=== PATIENT | male | born 1950 | race Caucasian/White ===

== ENCOUNTER → 2024-07-19 12:17 | Outpatient (REF) | payer MEDICARE, OTHER, SELFPAY ==
[2024-07-19 17:05] LABS: PSA, Total - Diagnostic 5.08 ng/ml (0.0-4.0)
== END ==
LOC: HWLAB 12:17
PROVIDERS: ATTENDING PHYSICIAN Urology; FAMILY PHYSICIAN Family Medicine
DX: R97.20 Elevated prostate specific antigen [PSA] (principal)
CPT/HCPCS: 84153

== ENCOUNTER → 2024-08-10 07:27 | Outpatient (REF) | payer MEDICARE, OTHER, SELFPAY ==
[2024-08-10 09:33] LABS: Blood Urea Nitrogen 27 mg/dl (9-20); Calcium 9.3 mg/dl (8.4-10.2); Carbon Dioxide 24 mmol/L (22-30); Chloride 104 mmol/L (98-107); Glucose 94 mg/dl (70-99); Potassium 4.7 mmol/L (3.5-5.1); Sodium 141 mmol/L (135-145); eGFR > 60.00
== END ==
LOC: HWLAB 07:27
PROVIDERS: ATTENDING PHYSICIAN Urology; FAMILY PHYSICIAN Family Medicine
DX: N40.1 Benign prostatic hyperplasia with lower urinary tract symptoms (principal); R33.9 Retention of urine, unspecified
CPT/HCPCS: 36415; 80048

== ENCOUNTER → 2024-08-12 09:40 | Outpatient (REF) | payer MEDICARE, OTHER, SELFPAY | LOC: HWRAD 09:40 | PROVIDERS: ATTENDING PHYSICIAN Urology; FAMILY PHYSICIAN Family Medicine | DX: N40.1 Benign prostatic hyperplasia with lower urinary tract symptoms (principal); R33.9 Retention of urine, unspecified | CPT/HCPCS: 76770 ==

== ENCOUNTER → 2025-02-18 10:24 | Outpatient (REF) | payer MEDICARE, OTHER, SELFPAY ==
[2025-02-18 14:00] LABS: PSA, Total - Diagnostic 5.32 ng/ml (0.0-4.0)
== END ==
LOC: HWLAB 10:24
PROVIDERS: ATTENDING PHYSICIAN Urology; FAMILY PHYSICIAN Family Medicine
DX: R97.20 Elevated prostate specific antigen [PSA] (principal)
CPT/HCPCS: 84153

== ENCOUNTER 2025-09-18 23:03 | Inpatient (IN) | payer MEDICARE, OTHER, SELFPAY ==
[2025-09-18 19:41] VITALS: BP 106/58
--- NOTE | 2025-09-18 20:07 | ED.GENMED ---
History of Present Illness
<Cortney Van PA-C - Last Filed: 09/18/25 23:11>
General
Chief Complaint: Fever
Source: patient
Exam Limitations: none
Time Seen by Provider: 09/18/25 19:53
History of Present Illness
History of Present Illness:
75yoM with a history of BPH, prior renal cell carcinoma s/p nephrectomy, and hypothyroidism presenting with his for evaluation of a fever. Patient started to experience hematuria about a week and a half ago. He was seen by his PCP and started
on Macrobid for a UTI. Symptoms were persistent and urine culture ultimately grew out greater than 100,000 colonies of Morganella that was resistant to Macrobid. He was switched to Bactrim 5 days ago. He started to notice chills yesterday and
checked his temperature this evening and he was febrile. He also reports a cough that is intermittently productive. No testicular pain, scrotal swelling, abdominal pain, flank pain, shortness of breath, vomiting, rash.
Phy Exam
<Cortney Van PA-C - Last Filed: 09/18/25 23:11>
General Physical Exam
General Presentation: well appearing and mild distress
General Skin: warm and dry
General Habitus: normal
General Mental: alert
ENT Exam
ENT Exam: normocephalic
Cardiovascular Exam
Cardiovascular Exam: tachycardia
Pulmonary Exam
Pulmonary Exam: lungs clear, no respiratory distress, no rales, no crackles and no rhonchi
Gastrointestinal Exam
Gastrointestinal Exam: non tender, soft, non distended and no cva tenderness
Neurological Exam
Neurological Exam: alert
[place] Coma Scale
Eye Opening: Spontaneous
Verbal Response: Oriented
Motor Response: Obeys Commands
GCS Total Score: 15
Skin Exam
Skin Exam: normal color and warm/dry
Psychiatric Exam
Psychiatric Exam: normal mood/affect
Sepsis
<Cortney Van PA-C - Last Filed: 09/18/25 23:11>
Sepsis Screening
Sepsis Assessment: Sepsis
Sepsis Screen
Sepsis Screen: Sepsis
Date: 09/18/25
Time: 23:11
Course
<Cortney Van PA-C - Last Filed: 09/18/25 23:11>
Orders/Labs/Results
Orders:
Orders
09/18/25 20:05
0.9% Sodium Chloride 1000 ml [Nss] 1,000 ml IV BOLUS
Acetaminophen [Tylenol] 1,000 mg PO NOW STA
09/18/25 20:06
CT Abd/pel Without Iv Or Oral Urgent
Comment:
Reason For Exam: fever, recent UTI
CR Chest - 2 Views Urgent
Comment:
Reason For Exam: fever, cough
09/18/25 20:16
COVID-19 Antigen Urgent
Source: Nasal Swab
Complete Blood Count/With Diff Urgent
Comprehensive Metabolic Panel Urgent
Lactate Level [Lactic Acid] Urgent
Influenza A+B Rapid Molecular Urgent
ANGELA Source: Nasal Swab
Specimen Description:
09/18/25 20:17
Urinalysis Reflex To Culture Urgent
Date Specimen was Collected: 09/18/25
Time Specimen was Collected: 20:17
Urine Microscopic Reflex Cult Urgent
Urine Culture Urgent
ANGELA Source: U
Specimen Description:
Date Specimen was Collected: 09/18/25
Time Specimen was Collected: 20:17
09/18/25 21:22
Bladder Scan- Treatment ONCE
Cefepime HCl [Maxipime] 2,000 mg IV NOW STA
09/18/25 21:51
Phillips Placement- Treatment ONCE
Reason for insertion: Acute Retention
0.9% Sodium Chloride 1000 ml [Nss] 1,000 ml IV BOLUS
09/18/25 22:39
0.9% Sodium Chloride 500 ml [Nss] 500 ml IV BOLUS
09/18/25 22:42
Admit/Transfer Patient As Directed
Co-Sign Provider:
Level of Care: Inpatient admission
Assign to:: Medical/Surgical
Physician / Group: Gianfranco Moss
Diagnosis: sepsis, UTI, EBENEZER, acute urinary retention
Reason for Hospitalization: sepsis, UTI, EBENEZER, acute urinary retention
Expected length of stay greater than two midnights?: Yes
ELOS- Estimated Length of Stay in days: 3
I certify the patient meets the requirements for IP care: Yes
PRN Pain Medication Management As Directed
May give lesser potent ordered pain med per pt: Yes
preference::
Protocol:: Medication orders for pain may be administered in a
manner that supports deferring to patient preference
when the pt is:
- Requesting an ordered lesser potent pain medication.
Least to most potent pain medications are defined
as: acetaminophen < NSAID < tramadol < opioids
(morphine, oxycodone, hydromorphone).
- Requesting a lesser dose of the same medication IF
ORDERED.
- Requesting a less intrusive route of administration
if both routes are prescribed by the provider (PO <
IV).
09/18/25 22:43
Code Status As Directed
Resuscitation Status: Full Code
09/18/25 23:00
Flush (0.9% Sodium Chloride) [Flush (Nss)] See Dose Instructions IV PER PROTOCOL
Abnormal Lab Results
09/18/25 09/18/25
20:16 20:17
WBC 12.2 H 10^3/uL
(4.8-10.8)
RBC 3.95 L 10^6/uL
(4.70-6.10)
Hgb 12.4 L g/dL
(13.0-18.0)
Hct 35.3 L %
(39.0-52.0)
MCH 31.4 H pg
(27.0-31.0)
Abs Immat Gran (auto) 0.2 H 10^3/uL
(0-0.05)
Absolute Neuts (auto) 10.6 H 10^3/uL
(1.4-6.5)
Absolute Lymphs (auto) 0.9 L 10^3/uL
(1.2-3.4)
Immature Gran % 1.5 H %
(0-0.5)
Neutrophils % 87.1 H %
(42.2-75.2)
Lymphocytes % 7.3 L %
(20.5-51.1)
Sodium 131 L mmol/L
(135-145)
Carbon Dioxide 20 L mmol/L
(22-30)
Creatinine 1.5 H mg/dL
(0.7-1.3)
Glucose 127 H mg/dl
(70-99)
Urine Ketones 1+ A
(Negative)
Ur Occult Blood Reflex 2+ A
(Negative)
Leukocyte Esterase Rfl 1+ A
(Negative)
Urine WBC (Reflex) 40-50 A /HPF
(0-5)
Urine Bacteria (Reflex) Few A
(Negative)
Urine Albumin (Reflex) 1+ A
(Neg - Trace)
09/18/25 20:16
09/18/25 20:16
Vital Signs
Initial and Last Documented VS:
Initial Vital Signs
Temp Pulse Resp BP Pulse Ox
103.1 F H 108 20 106/58 95
09/18/25 19:41 09/18/25 19:41 09/18/25 19:41 09/18/25 19:41 09/18/25 19:41
Last Documented Vital Signs
Temp Pulse Resp BP Pulse Ox
100.9 F H 90 23 100/65 92
09/18/25 21:34 09/18/25 23:04 09/18/25 23:04 09/18/25 23:04 09/18/25 23:04
Gricellt;Louis KeziaCarlos Webster, DO - Last Filed: 09/18/25 21:55>
Orders/Labs/Results
Orders:
Orders
09/18/25 20:05
0.9% Sodium Chloride 1000 ml [Nss] 1,000 ml IV BOLUS
Acetaminophen [Tylenol] 1,000 mg PO NOW STA
09/18/25 20:06
CT Abd/pel Without Iv Or Oral Urgent
Comment:
Reason For Exam: fever, recent UTI
CR Chest - 2 Views Urgent
Comment:
Reason For Exam: fever, cough
09/18/25 20:16
COVID-19 Antigen Urgent
Source: Nasal Swab
Complete Blood Count/With Diff Urgent
Comprehensive Metabolic Panel Urgent
Lactate Level [Lactic Acid] Urgent
Influenza A+B Rapid Molecular Urgent
ANGELA Source: Nasal Swab
Specimen Description:
09/18/25 20:17
Urinalysis Reflex To Culture Urgent
Date Specimen was Collected: 09/18/25
Time Specimen was Collected: 20:17
Urine Microscopic Reflex Cult Urgent
Urine Culture Urgent
ANGELA Source: U
Specimen Description:
Date Specimen was Collected: 09/18/25
Time Specimen was Collected: 20:17
09/18/25 21:22
Bladder Scan- Treatment ONCE
Cefepime HCl [Maxipime] 2,000 mg IV NOW STA
09/18/25 21:51
Phillips Placement- Treatment ONCE
Reason for insertion: Acute Retention
0.9% Sodium Chloride 1000 ml [Nss] 1,000 ml IV BOLUS
09/18/25 22:39
0.9% Sodium Chloride 500 ml [Nss] 500 ml IV BOLUS
09/18/25 22:42
Admit/Transfer Patient As Directed
Co-Sign Provider:
Level of Care: Inpatient admission
Assign to:: Medical/Surgical
Physician / Group: Gianfranco Moss
Diagnosis: sepsis, UTI, EBENEZER, acute urinary retention
Reason for Hospitalization: sepsis, UTI, EBENEZER, acute urinary retention
Expected length of stay greater than two midnights?: Yes
ELOS- Estimated Length of Stay in days: 3
I certify the patient meets the requirements for IP care: Yes
PRN Pain Medication Management As Directed
May give lesser potent ordered pain med per pt: Yes
preference::
Protocol:: Medication orders for pain may be administered in a
manner that supports deferring to patient preference
when the pt is:
- Requesting an ordered lesser potent pain medication.
Least to most potent pain medications are defined
as: acetaminophen < NSAID < tramadol < opioids
(morphine, oxycodone, hydromorphone).
- Requesting a lesser dose of the same medication IF
ORDERED.
- Requesting a less intrusive route of administration
if both routes are prescribed by the provider (PO <
IV).
09/18/25 22:43
Code Status As Directed
Resuscitation Status: Full Code
09/18/25 23:00
Flush (0.9% Sodium Chloride) [Flush (Nss)] See Dose Instructions IV PER PROTOCOL
Abnormal Lab Results
09/18/25 09/18/25
20:16 20:17
WBC 12.2 H 10^3/uL
(4.8-10.8)
RBC 3.95 L 10^6/uL
(4.70-6.10)
Hgb 12.4 L g/dL
(13.0-18.0)
Hct 35.3 L %
(39.0-52.0)
MCH 31.4 H pg
(27.0-31.0)
Abs Immat Gran (auto) 0.2 H 10^3/uL
(0-0.05)
Absolute Neuts (auto) 10.6 H 10^3/uL
(1.4-6.5)
Absolute Lymphs (auto) 0.9 L 10^3/uL
(1.2-3.4)
Immature Gran % 1.5 H %
(0-0.5)
Neutrophils % 87.1 H %
(42.2-75.2)
Lymphocytes % 7.3 L %
(20.5-51.1)
Sodium 131 L mmol/L
(135-145)
Carbon Dioxide 20 L mmol/L
(22-30)
Creatinine 1.5 H mg/dL
(0.7-1.3)
Glucose 127 H mg/dl
(70-99)
Urine Ketones 1+ A
(Negative)
Ur Occult Blood Reflex 2+ A
(Negative)
Leukocyte Esterase Rfl 1+ A
(Negative)
Urine WBC (Reflex) 40-50 A /HPF
(0-5)
Urine Bacteria (Reflex) Few A
(Negative)
Urine Albumin (Reflex) 1+ A
(Neg - Trace)
09/18/25 20:16
09/18/25 20:16
Vital Signs
Initial and Last Documented VS:
Initial Vital Signs
Temp Pulse Resp BP Pulse Ox
103.1 F H 108 20 106/58 95
09/18/25 19:41 09/18/25 19:41 09/18/25 19:41 09/18/25 19:41 09/18/25 19:41
Last Documented Vital Signs
Temp Pulse Resp BP Pulse Ox
100.9 F H 90 23 100/65 92
09/18/25 21:34 09/18/25 23:04 09/18/25 23:04 09/18/25 23:04 09/18/25 23:04
<Corntey Van PA-C - Last Filed: 09/18/25 23:11>
MDM/Problems Addressed
Differential Diagnosis Includes:
75yoM here with fevers and chills. Currently on Bactrim for a UTI. Temp 103.1 on arrival with associated tachycardia. BP 106/58. Patient non-toxic appearing. Differential diagnosis includes but is not limited to: urinary tract infection,
pyelonephritis, prostatitis, infected kidney stone, bacteremia, sepsis
Initial ED plan: Check septic workup including blood cultures, lactate, COVID/flu swab, UA, CXR, and CT abdomen without contrast given solitary kidney. Tylenol and IV fluid bolus.
<Cortney Van PA-C - Last Filed: 09/18/25 23:11>
*Pulse Oximetry
SaO2: 95
Oxygen Mode of Delivery: Room air
Patient hypoxic: no
*Critical Care Note
Total Time (30-74mins, 75-104mins- exclusive of procedures): Not Applicable
<Cortney Van PA-C - Last Filed: 09/18/25 23:11>
Update Note
Update Note:
Labs reveal a creatinine of 1.5 which is mildly increased to baseline. White count 12.2. Lactate. UA with 40-50 WBCs and a few bacteria. CT shows significantly distended bladder with findings suggestive of cystitis. No hydronephrosis or
ureterolithiasis. Bladder scan >1L and Phillips catheter ordered. IV cefepime and 2L NS ordered. Patient admitted for further evaluation and management.
ED Attending Note
<Cortney Van PA-C - Last Filed: 09/18/25 23:11>
-
Portions of this chart may have been created with voice recognition software.� Occasional wrong word or��sound alike� substitutions may have occurred due to the inherent limitations of voice recognition software.
<Louis Webster DO - Last Filed: 09/18/25 21:55>
ED Attending Note
Patient seen and examined by attending physician: Yes
I performed the substantive portion of visit, reviewed & personally made and approve the management plan that is documented in note by myself or FITO.: Yes
ED Attending Note:
I agree with Lauren's note
Patient presents with fever, chills, hematuria. No improvement on Bactrim. Quite febrile on arrival here.
General: Awake, Alert, Oriented X3. Appears somewhat uncomfortable but no acute distress
Vitals: unremarkable
Head: Atraumatic
Eyes: Pupils equal, EOMI
Throat: Airway intact, no exudates
Neck: Trachea midline
Abd: Soft, suprapubic fullness, No pulsatile mass
Neuro: Grossly nonfocal
Skin: Warm, dry, no rash
Urine highly suggestive of urinary tract infection. Patient had an outpatient culture which grew Morganella. It did show some resistance but is sensitive to cephalosporins. Lauren ordered cefepime which is appropriate. Imaging shows bladder
outlet obstruction with a very large bladder. Patient will require Phillips for catheter to decompress the bladder outlet obstruction.
Discharge Plan
Departure
Patient Disposition: Admit
Presentation/result/management discussed w/ accepting MD/DO: Hospitalist
Discharge Problem:
Sepsis
Interventions
Interventions:
*Risk Screen - Suicide Last Done: 09/18/25 19:41
*General Assessment Last Done: 09/18/25 19:41
*Neglect/Abuse Screening Last Done: 09/18/25 20:31
*ED- Fall Risk Assessment Last Done: 09/18/25 20:31
*ED COVID-19 Vaccine History Last Done: 09/18/25 20:31
*ED Influenza Vaccine History Last Done: 09/18/25 20:31
ED- Neurological Assessment Last Done: 09/18/25 20:31
ED-Skin Assessment Last Done: 09/18/25 20:31
[2025-09-18 20:19] VITALS: BMI 31.0
[2025-09-18 20:20] VITALS: BP 100/61
[2025-09-18] MEDS: NSS 1000 IV ×2 (20:21→21:58)
[2025-09-18] MEDS: TYLENOL 1000 MG PO (20:24)
[2025-09-18 20:35] LABS: Hematocrit 35.3 % (39.0-52.0); Hemoglobin 12.4 g/dL (13.0-18.0); Mean Corp Hgb Conc. 35.1 g/dL (33.0-37.0); Mean Corpuscular Volume 89.4 fL (80.0-94.0); Nucleated Red Blood Cells % 0 % (-); Platelet Count 267 10^3/uL (130-400); Red Cell Dist. Width 12.5 % (11.5-14.5)
[2025-09-18 20:36] LABS: Urine Character Clear (Clear)
[2025-09-18 20:49] LABS: COVID-19 Antigen Negative (Negative)
[2025-09-18 20:51] LABS: Urine Squamous Cell 16-20 /LPF (Few)
[2025-09-18 20:52] LABS: Urine Red Blood Cell 0-2 /HPF (0-2); Urine White Cell 40-50 /HPF (0-5)
[2025-09-18 20:58] LABS: ALT (SGPT) 32 U/L (0-50); AST (SGOT) 34 U/L (17-59); Albumin 4.0 g/dl (3.5-5.0); Alkaline Phosphatase 79 U/L (38-126); Blood Urea Nitrogen 16 mg/dl (9-20); Calcium 8.8 mg/dl (8.4-10.2); Carbon Dioxide 20 mmol/L (22-30); Chloride 99 mmol/L (98-107); Estimated Creatinine Clearance 48 ml/min; Glucose 127 mg/dl (70-99); Potassium 4.5 mmol/L (3.5-5.1); Sodium 131 mmol/L (135-145); Total Protein 6.7 g/dl (6.3-8.2); eGFR 48.55
[2025-09-18 21:10] VITALS: BP 96/59
[2025-09-18] MEDS: MAXIPIME 2000 MG IV (21:25)
[2025-09-18 21:43] VITALS: BP 95/59
--- NOTE | 2025-09-18 21:57 | HPS.HSE ---
Family Physician
-
Family Physician: Lena Shay
Chief Complaint
-
fever
History of Present Illness
Patient is a 75-year-old male with past medical history significant for renal cell carcinoma, BPH, hypothyroidism and asthma who presented to [facility] ED for evaluation of fever. Patient reports was seen my primary care provider for increased urinary
frequency and difficulty emptying bladder. He was seen and treatment was started for suspected UTI with Macrobid. Patient took Macrobid as ordered and 1-2 days later he started with hematuria. When culture resulted, Morganella grew and was resistant
to Macrobid, antibiotics where then changed to Bactrim which started 6 days ago. Patient and stated that patient has had chills for the past 1-2 days and did not think to check his temperature until today. Patient reports he continues to have
increased frequency and 'slow' urination and does not feel he is emptying his bladder.
Medical History
Past Medical History
Past Medical History: Reports Other
Additional Past Medical History:
renal cell carcinoma
BPH
hypothyroidism
asthma
Past Surgical History: Reports Other
Additional Past Surgical History:
right nephrectomy 2016
eye surgery in childhood
Social History
Tobacco: Non-smoker
Alcohol: Occasional (3-4x week)
Drug: Marijuana (gummies PRN 2x week for pain )
Personal:
Living: With Family
Employment: Retired
Family History
Family History: Other (Mother: lung cancer; Father: DM, CAD, Alzheimer's; Brother: prostate cancer; brother: skin cancer )
Allergies / Home Medications
Allergies reflects when Allergies were last updated in [email or web address].
Home Medications with original date entered in [email or web address]
Allergy/Medication List:
Allergies
Allergy/AdvReac Type Severity Reaction Status Date / Time
No Known Allergies Allergy Verified 09/18/25 19:41
Home Medications
biotin 1 mg tablet 1 mg PO DAILY 09/18/25
finasteride 5 mg tablet 5 mg PO DAILY 09/18/25
levothyroxine 25 mcg tablet 25 mcg PO DAILY 09/18/25
multivitamin 1 tab PO DAILY 09/18/25
sildenafil 100 mg tablet (Viagra) 100 mg PO PRN PRN intercourse 09/18/25
tadalafil 10 mg tablet 10 mg PO DAILY 09/18/25
vitamin B complex 1 cap PO DAILY 09/18/25
Review of Systems
-
History Source: Patient and Family
Constitutional: Reports Fever and Chills
EENT: Denies Sore Throat
Respiratory: Denies Cough, Hemoptysis or Trouble Breathing
Cardiac: Denies Chest Pain, Diaphoresis, Palpitations or Syncope
Abdomen/GI: Reports Abdominal Pain and Constipated; Denies Nausea, Vomiting or Diarrhea
: Reports Frequency and Difficulty Voiding; Denies Dysuria, Flank Pain or Incontinence
Musculoskeletal: Denies Joint Swelling
Skin: Denies Rash
Neurological: Reports Weakness; Denies Dizzy, Headache or Numbness
Endocrine: Denies Polyuria or Polydipsia
Physical Exam
Vital Signs
Vital Signs
Temp Pulse Resp BP Pulse Ox
100.9 F H 97 18 95/59 92
09/18/25 21:34 09/18/25 21:45 09/18/25 21:45 09/18/25 21:43 09/18/25 21:45
Physical Exam
General: Well Developed, Well Nourished, No Apparent Distress, Comfortable and Conversant
HEENT: NormoCephalic, PERRLA, Nose Appears Normal and Ears Appear Normal
Respiratory: Clear and Non Labored Respirations
Cardiac: S1/S2 and Regular Rhythm; No Murmur or Peripheral Edema
GI: Soft, Non Tender, Non Distended and Normal Bowel Sounds
Genito-urinary: Clear Urine, No costovertebral tender and Phillips
Musculoskeletal: No Clubbing, No Cyanosis and No Edema
Skin: Warm and IV/Catheter Site
Neuro: Awake and AO x 3
Psych: Calm and Intact Judgment/Insight
Laboratory Results
-
09/18/25 20:16
09/18/25 20:16
Laboratory Results
Lactic Acid 1.1 mmol/L (0.7-2.0) 09/18/25 20:16
Total Bilirubin 0.6 mg/dl (0.2-1.3) 09/18/25 20:16
AST 34 U/L (17-59) 09/18/25 20:16
ALT 32 U/L (0-50) 09/18/25 20:16
Alkaline Phosphatase 79 U/L (38-126) 09/18/25 20:16
Data Reviewed
-
Diagnostic Radiology: Report Reviewed by me (CXR: Mild blunting of the posterior costophrenic angles bilaterally. Correlating with earlier CT of the abdomen and pelvis obtained this same date, there is amount of pleural fluid bilaterally as well as
mild basilar atelectasis.)
CT Scan: Report Reviewed by me (Abd/Pel: The urinary bladder is significantly distended and lobulated, estimated volume of 1380 cc. Slight stranding of the fat surrounding the urinary bladder, suggesting the possibility of cystitis. 2.3 cm cyst
arising in the lateral aspect of the left mid kidney. No other focal abnormality of th)
Lab Data: Labs Reviewed by me (WBC 12.2, neut 87.1, Na 131, creat 1.5, est CrCl 48, eGFR 48.55)
Impression/Plan
-
IMPRESSION/PLAN:
#sepsis 2/2 urinary tract infection
patient treated with Macrobid and Bactrim outpatient and treatment failed
patient reports increased frequency and feeling he is not emptying bladder
WBC 12.2, neut 87.1
UA: indicative of UTI
Urine Cx: pending
Influenza: negative
Covid: negative
CXR: Mild blunting of the posterior costophrenic angles bilaterally. Correlating with earlier CT of the abdomen and pelvis obtained this same date, there is amount of pleural fluid bilaterally as well as
mild basilar atelectasis.
Abd/Pel CT: The urinary bladder is significantly distended and lobulated, estimated volume of 1380 cc. Slight stranding of the fat surrounding the urinary bladder, suggesting the possibility of cystitis.
2.3 cm cyst arising in the lateral aspect of the left mid kidney. No other focal abnormality of the left kidney.
Status post right nephrectomy.
Prostate gland is enlarged, extending into the base of the bladder.
Trace amount of pleural fluid within the posterior lower chest bilaterally.
Fatty infiltration the liver.
Bony degenerative changes as described.
- Admit to med/surg
- Phillips placed in ED for acute retention
- IVF NS 100cc/hr
- IV cefepime
- supportive care
#acute urinary retention likely 2/2 UTI
- Phillips placed in ED
- void trial after treating infection
#acute kidney injury
Na 131, creat 1.5, est CrCl 48, eGFR 48.55
- IVF
- monitor BMP
#constipation
patient unsure of last BM
- daily Miralax
#BPH
- continue finasteride and tadalafil
#hypothyroidism
- continue levothyroxine
#renal cell carcinoma
s/p nephrectomy 2015
Followed with Ubaldo Echols (no chemo and no radiation)
Code status: full code
DVT prophylaxis: heparin sq
[2025-09-18 22:00] VITALS: BP 91/56
--- NOTE | 2025-09-18 22:07 | W.PN.UPDATE ---
Update Note
Progress Note Update
Patient seen in conjunction with BLOCK CUBER. I agree with the findings on history and physical. I concur with the assessment and plan.
Briefly, this is a 75-year-old with past medical history significant for renal cell cancer status post nephrectomy, BPH, hypothyroid who presents to the emergency department with fevers and chills that started today. Patient reported that he was
seen by his physician for frequency/urgency then hematuria and was diagnosed with a UTI. He was initially started on Macrobid. He grew Morganella that was resistant to the macrobid and patient was switched to Bactrim. Over 2 days the hematuria
improved but frequency and difficulty urinating continued. He felt he has some urinary retention. Denies flank pain but suddenly started having fevers today. No history of nephrolithiasis.
In the emergency department patient was febrile to 103.1. Blood pressure was borderline at 95/60 with a pulse rate of 97 and was satting 92% on room air. Chest x-ray without any focal infiltrates but blunting of the bilateral costophrenic angles
consistent with small amount of pleural effusion and mild basilar atelectasis. He CT of the abdomen pelvis showing markedly distended and lobulated urinary bladder with slight stranding of the fat surrounding the urinary bladder consistent with
cystitis. There are no stones. He is status post right nephrectomy. CBC with a white count of 12.2 otherwise unremarkable. Electrolytes were within the normal range. Creatinine elevated 1.5. UA was negative positive with 1+ leukocyte esterase
numerous WBCs and bacteria.
Assessment and plan
Sepsis with EBENEZER secondary to complicated cystitis -on unclear with the patient later on developed obstructive symptoms in the setting of his UTI developed a UTI from obstruction but he clearly has a urinary obstruction on CT scan. Phillips catheter
placed in the ED. Currently hemodynamically stable.
- Admit to MedSurg
- Status post 30 mL/kg of crystalloid
- Blood cultures, urine culture
- Continue with IV cefepime for now
- Continue IV fluid
- Maintain urinary cath and monitor ins and outs
- Continue tadalafil and finasteride
- Voiding trial to be determined
DVT prophylaxis with heparin subcu
CODE STATUS�full code
[2025-09-18] MEDS: NSS 500 IV (22:41)
[2025-09-18] MEDS: FLUSH (NSS) 1 FLUSH IV (22:42)
[2025-09-18 23:04] VITALS: BP 100/65
[2025-09-19] VITALS (9 sets, daily range): BP systolic 87–103; BP diastolic 56–67; PULSE 89–105; BMI 30.6
[2025-09-19] MEDS: HEPARIN 5000 UNITS SC ×3 (01:34→15:44)
[2025-09-19] MEDS: NSS 1000 IV ×4 (01:34→18:43)
--- NOTE | 2025-09-19 03:28 | PTCARENOTE ---
Receive pt from ER. Pt alert oriented X3, in no distress. Pt assisted X1 to his bed. Pt oriented to the room, call meyer within reach. Pt is afebrile, T=98.6, HR=94, RR=20, BP=98/57, SpO2=96% on RA. Pt has a gorman that is draining a clear yellow
urine. IVFs infusing as per order. Will continue to monitor the pt.
[2025-09-19] MEDS: TYLENOL 650 MG PO ×4 (04:30→20:18)
[2025-09-19] MEDS: DUONEB 3 ML INH (05:06)
--- NOTE | 2025-09-19 05:27 | PTCARENOTE ---
Pt complains about shivering, chest pain with ispiration. Chest pain is not radiating. Pt's T=100, MI=665, PD=228/62, SpO2=95% on RA. EKG shows NSR. Respiratory therapist called for a Neb treatment and MARE made aware. Lab added to morning Labs.
Tylenol given for the shivering. Pt states that he feels better after Neb treatment. Will keep monitoring the pt.
[2025-09-19] MEDS: SYNTHROID 25 MCG PO (05:32)
[2025-09-19 07:08] LABS: Magnesium 2.0 mg/dl (1.6-2.3)
[2025-09-19 07:09] LABS: Blood Urea Nitrogen 13 mg/dl (9-20); Calcium 7.9 mg/dl (8.4-10.2); Carbon Dioxide 20 mmol/L (22-30); Chloride 103 mmol/L (98-107); Estimated Creatinine Clearance 59 ml/min; Glucose 117 mg/dl (70-99); Sodium 131 mmol/L (135-145); eGFR > 60.00
[2025-09-19 07:28] LABS: Hematocrit 32.4 % (39.0-52.0); Hemoglobin 10.7 g/dL (13.0-18.0); Mean Corp Hgb Conc. 33.0 g/dL (33.0-37.0); Mean Corpuscular Volume 95.9 fL (80.0-94.0); Platelet Count 207 10^3/uL (130-400); Red Cell Dist. Width 12.8 % (11.5-14.5)
[2025-09-19 07:46] LABS: Troponin I 0.692 ng/ml
[2025-09-19 08:14] LABS: Potassium 3.9 mmol/L (3.5-5.1)
[2025-09-19] MEDS: MIRALAX 17 GRAMS PO (08:23)
[2025-09-19] MEDS: PROSCAR 5 MG PO (08:23)
--- NOTE | 2025-09-19 09:58 | W.PN.HOSP.TC ---
Today's Communication/Plan
-
telemetry
Trend troponin
Increase dose of cefepime
PT/OT
Okay to ambulate
Can stop IV fluid
Follow-up with ID recommendation
Assessment / Plan
Assessment / Plan
Physical Exam
General: Well Developed, Well Nourished, No Apparent Distress, Comfortable and Conversant
HEENT: NormoCephalic, PERRLA, Nose Appears Normal and Ears Appear Normal
Respiratory: Clear and Non Labored Respirations
Cardiac: S1/S2 and Regular Rhythm; No Murmur or Peripheral Edema
GI: Soft, Non Tender, Non Distended and Normal Bowel Sounds
Genito-urinary: Clear Urine, No costovertebral tender and Phillips
Musculoskeletal: No Clubbing, No Cyanosis and No Edema
Skin: Warm and IV/Catheter Site
Neuro: Awake and AO x 3
Psych: Calm and Intact Judgment/Insight
#sepsis 2/2 urinary tract infection
patient treated with Macrobid and Bactrim outpatient and treatment failed
He is feeling better
urine culture is pending
will do blood culture
Will increase cefepime to q 8 to right dose for sepsis
Consult infectious disease
#acute urinary retention likely 2/2 UTI with prior history of retention. History of BPH. Patient follows with [place] [facility]. He is under close observation and has upcoming appointment. We will do a voiding trial after treating the infection. If
fails, will send home with Jacqueline to follow-up with his primary urology
- Phillips placed in ED
#acute kidney injury
Resolved
Can stop IV fluid
#BPH
- continue finasteride and tadalafil
# Hyponatremia, no confusion, lucid
# Nonischemic myocardial injury secondary to sepsis
No chest pain.
Nuclear stress test in 2023 was low probability for CAD
EKG, no ischemic change
Monitor on telemetry, ordered telemetry
Trend troponin. Seems to plateau t
#constipation
patient unsure of last BM
- daily Miralax
#hypothyroidism
- continue levothyroxine
#renal cell carcinoma
s/p nephrectomy 2015
Followed with [facility]ch[facility] (no chemo and no radiation)
Code status: full code
DVT prophylaxis: heparin sq
Total time spent to see the patient, examine the patient, review data and lab results, discuss treatment plan with patient, nursing staff around 55 minutes
Anticipated Discharge: > 48 hours
Subjective/Interval History
-
Date of Service: September 19, 2025
he feels better
No chest pain
No sob
No abdominal pain
Objective Data
-
Labs:
Laboratory Results
09/19/25
06:08
WBC 10.3
Hgb 10.7 L
Hct 32.4 L
Plt Count 207 D
Sodium 131 L
Potassium 3.9
Chloride 103
Carbon Dioxide 20 L
BUN 13
Creatinine 1.2
Glucose 117 H
Calcium 7.9 L
Vital Signs:
Vital Signs
Temp Pulse Resp BP Pulse Ox
99.4 F 100 18 94/65 95
09/19/25 08:36 09/19/25 06:59 09/19/25 06:59 09/19/25 06:59 09/19/25 06:59
I&O
09/18/25 09/19/25 09/20/25
06:59 06:59 06:59
Intake Total 0 / 0
Output Total 2074
Balance -2074
[2025-09-19] MEDS: STERILE WATER FOR INJECTION 10 ML IV ×2 (10:05→17:05)
[2025-09-19] MEDS: MAXIPIME 1000 MG IV ×2 (10:06→17:04)
[2025-09-19 12:11] LABS: Troponin I 0.861 ng/ml
--- NOTE | 2025-09-19 13:13 | PTCARENOTE ---
while pt working with physical therapy, HR went up to 180 with exertion. pt c/o dizziness and palpitations. EKG completed, showing sinus tach with PACs. orthostatic VS negative. MD at bedside. plan of care ongoing.
--- NOTE | 2025-09-19 13:21 | CON.ID ---
Consultation
-
Date/Time Consultation Requested: 09/19/2025 0726
Date/Time Consultation Performed: 09/19/2025 1315
Requesting Provider: Dr. Angel
Performing Provider: Dr. Regan
Reason for Consultation: Sepsis
Chief Complaint / Past History
History of Present Illness
Delon Marion is a 75-year-old man being evaluated at request of Dr. Angel in regards to sepsis. History is obtained from chart review, along with patient interview.
The patient presented to [facility] ER on 09/18/2025 following the development of fever. He had been into see his primary care provider after noticing increased urinary frequency and difficulty with emptying the bladder. He was started on
Macrobid for suspected urinary tract infections but despite 1 to 2 days of therapy he began to develop hematuria. Cultures were then obtained and grew Morganella (resistant to Macrobid) and the patient was transition to Bactrim approximately 6 days
prior to admission. Despite therapy he has continued with chills and fevers. Additionally, he continues to feel like he was not completely emptying his bladder.
At admission, he was found to be febrile to 103 degrees, and admission white count was 12.2. Blood cultures and urine culture were obtained and are currently pending. Infectious Diseases assessed, upon further antimicrobial therapy at this time.
Past History
Additional Past Medical History:
BPH
Hx renal cell carcinoma
Hypothyroidism
Asthma
Additional Past Surgical History:
Right nephrectomy (2016)
Childhood eye surgery
Allergy History:
No Known Allergies Allergy (Verified 09/18/25 19:41)
Medications Reviewed: Yes
Current Antibiotics:
Cefepime 1 gm IV q.8 hours
Social History
Tobacco: Non-Smoker
Alcohol: Occasional
Drug: None
Personal:
Living: With Family
Employment: Retired
Family History
Family History: Not Pertinent
Review of Systems
Vital Signs
Temp Pulse Resp BP Pulse Ox
98.2 F 103 18 90/62 96
09/19/25 11:51 09/19/25 11:51 09/19/25 11:51 09/19/25 11:51 09/19/25 11:51
Physical Exam
Physical Exam
Constitutional: No Acute Distress, Comfortable and Non-toxic
Eyes: No Conjunctival Hemorrhage and Sclera Anicteric
Oral: No Thrush and No Ulcers
Cardiovascular: Regular Rate and S1/S2; Negative S3/S4
Pulmonary: Clear; Negative Wheezes, Rales or Rhonchi
Gastrointestinal: Soft, Non Tender, Non Distended, Normal Bowel Sounds, No Rebound and No Guarding
Genito-Urinary: Phillips and Clear Urine; Negative CVA Tenderness, Turbid Urine or Hematuria
Extremities: Negative Edema, Cyanosis or Erythema
Musculoskeletal: Negative Joint Swelling or Joint Effusion
Skin: Warm and Dry; Negative Rash or Jaundice
Neurological: Awake and Alert
Psychological: Calm
Lab / Diagnostic Study Results
09/19/25 06:08
09/19/25 06:08
Abs Immat Gran (auto) 0.2 10^3/uL (0-0.05) H 09/18/25 20:16
Absolute Neuts (auto) 10.6 10^3/uL (1.4-6.5) H 09/18/25 20:16
Absolute Lymphs (auto) 0.9 10^3/uL (1.2-3.4) L 09/18/25 20:16
Absolute Monos (auto) 0.4 10^3/uL (0.1-0.6) 09/18/25 20:16
Absolute Basos (auto) 0.0 10^3/uL (0-0.2) 09/18/25 20:16
Immature Gran % 1.5 % (0-0.5) H 09/18/25 20:16
Neutrophils % 87.1 % (42.2-75.2) H 09/18/25 20:16
Lymphocytes % 7.3 % (20.5-51.1) L 09/18/25 20:16
Monocytes % 3.6 % (1.7-9.3) 09/18/25 20:16
Eosinophils % 0.2 % (0-6) 09/18/25 20:16
Basophils % 0.3 % (0-2) 09/18/25 20:16
Lactic Acid 1.1 mmol/L (0.7-2.0) 09/18/25 20:16
Ur Squamous Epith Cells 16-20 /LPF (Few) 09/18/25 20:17
Microbiology Results
Micro:
09/19/25 11:18 Blood Culture - Pending
Blood/Venous
09/18/25 20:17 Urine Culture - Pending
Urine
09/18/25 20:16 Influenza Types A & B (MORGAN) - Final
Nasal Swab Negative for Influenza A & B, NAAT
Negative results must be combined with clinical observations
and patient history.
Nucleic Acid Amplification test (NAAT)performed on the
[employer] NOW platform.
Imaging:
09/18/2025 CXR (2 view): mild blunting of the posterior costophrenic angles bilaterally. No overt infiltrates.
09/18/2025 CT abdomen/pelvis without contrast: urinary bladder is significantly distended and lobulated with an estimated volume of 1380 cc. Slight stranding of the fat surrounding the urinary bladder suggesting the possibility of cystitis. There
is a 2.3 cm cyst arising in the lateral aspect of the left mid kidney. He is status post right nephrectomy. Prostate gland is enlarged and extends into the base of the bladder. Please see full dictation for additional detail. Film personally
viewed.
Assessment / Plan
Complicated urinary tract infection
Leukocytosis
Fever
EBENEZER; improved
Urinary retention
BPH
Hx renal cell carcinoma
Hypothyroidism
Asthma
Recommendations:
Continue with empiric cefepime for today.
Await pending cultures to guide further antimicrobial selection and potential de-escalation.
Monitor white count and temperature curve.
Will attempt to get outpatient culture data.
--- NOTE | 2025-09-19 13:47 | CON.CAR ---
Addendum entered and electronically signed by Ayden Tellez MD 09/19/25 17:01:
I saw and examined the patient.
The YARD ATTENDANT or PA's note was reviewed and I agree with the note.
Comment: General: Well developed, well nourished in NAD.
Neck: Supple, no JVD, HJR, carotids +2 B/L, no bruits bilaterally.
Heart: Non displaced PMI, RRR, no murmurs, No S3, S4, no rubs.
Lungs: Clear to auscultation bilaterally, no wheeze, rhonchi, rubs bilaterally,
normal expiratory phase.
Abdomen: Normal bowel sounds, soft, non-tender, non-distended.
Extremities: No clubbing, cyanosis or edema bilaterally.
Neuro: Grossly nonfocal, awake, alert and oriented x3.
Don has a history of renal cell carcinoma status post nephrectomy, BPH, hypothyroidism, hyperlipidemia. He presented with fever and urosepsis. Cardiology is consulted for tachycardia and elevated troponin. Review of telemetry revealed 8-minute
episode of A-fib. Also troponin was increased to 0.692 and then went to 0.861. He did have chest discomfort laying in bed and seem to be worse with inspiration and taking a cough
Will follow troponins. They are trending down. Will check echocardiogram. Will treat as nonischemic myocardial injury but will consider outpatient stress testing or catheterization if ejection fraction is reduced on echocardiogram. Regarding
A-fib will add IV Lopressor and p.o. Lopressor. Will need to consider anticoagulation if recurs/persists. Will need monitor on discharge if not anticoagulated. Discussed with patient and family in detail at bedside.
Original Note:
Consultation
Consultation Request
Date/Time Consultation Requested: 09/19/2025, 1300
Date/Time Consultation Performed: 09/19/2025, 1348
Requesting Provider: Dr. Angel
Performing Provider: MARE Benson for Dr. Tellez
Reason for Consultation: Elevated troponin, SVT
Medical History
-
History of Present Illness:
75-year-old male with past medical history of renal cell cancer status post nephrectomy, BPH, hypothyroidism, hyperlipidemia presented to [facility] on 09/18/2025 with fever and chills in setting of UTI.. Previously saw PCP for urinary frequency and
hematuria and was started on an antibiotic. He was febrile in ED with temp 103.1. WBC 12.2. Admitted for urosepsis, blood and urine cultures pending. Being followed by ID. Cardiology consulted due to troponin elevation at 0.692 increased to
0.861 and continuing to trend. Patient had episode of chest pain early this morning when he was lying in bed. Reported ache in left chest under nipple, worse with inspiration and cough. Subsequently resolved and has not reoccurred. He has not
been having chest pain in the home setting.
Today while getting out of bed to sit in chair had episode of tachycardia lasting approximately 8 minutes, heart rates 120s-160 bpm and complained of palpitations. On review of telemetry strip appears to be narrow complex tachycardia, possible
atrial fibrillation
Twelve-lead EKG: Sinus tachycardia PACs, 105 bpm
Labs 09/19: NA 131, K3.9, BUN/creatinine 13/1.2, mag 2.0
Past medical history:
Hyperlipidemia
Hypothyroidism
Renal cell CA status post right radical nephrectomy 10/2015
Chronic kidney disease
Asthma with recent flare requiring prednisone
Past Medical History
Past Medical History: Other
Past Surgical History: Other (Right nephrectomy 2015)
Social History
Tobacco: Non-Smoker
Alcohol: Occasional (3-4 drinks a week)
Family History
Family History: Other (Father had cardiovascular disease in his 50s)
Allergies / Home Medications
Allergy/AdvReac Type Severity Reaction Status Date / Time
No Known Allergies Allergy Verified 09/18/25 19:41
�Medication �Instructions �Recorded �Confirmed �Type
biotin 1 mg tablet 1 mg PO DAILY Supplement 09/18/25 09/18/25 History
finasteride 5 mg tablet 5 mg PO DAILY Urinary Issue 09/18/25 09/18/25 History
levothyroxine 25 mcg tablet 25 mcg PO DAILY Thyroid 09/18/25 09/18/25 History
multivitamin 1 tab PO DAILY Supplement 09/18/25 09/18/25 History
sildenafil 100 mg tablet (Viagra) 100 mg PO PRN PRN intercourse 09/18/25 09/18/25 History
tadalafil 10 mg tablet 10 mg PO DAILY Urinary Issue 09/18/25 09/18/25 History
vitamin B complex 1 cap PO DAILY Supplement 09/18/25 09/18/25 History
Review of Systems
-
History Source: Patient and Family
All other systems: Negative unless noted
Physical Exam
Vital Signs
Temp Pulse Resp BP Pulse Ox
98.2 F 103 18 90/62 96
09/19/25 11:51 09/19/25 11:51 09/19/25 11:51 09/19/25 11:51 09/19/25 11:51
Lab Results
09/19/25 06:08
09/19/25 06:08
Troponin I Cancelled 09/19/25 18:00
Dmy-N-Dwmqitbxykk Pept 2250 pg/ml 09/19/25 06:08
GEN: No distress, awake, Ox3
HEENT: supple, anicteric, mmm
LUNGS: CTA, no wheezes/rales
CV: Reg, S1/S2, no murmur
ABD: soft, BS+, NT/ND
EXT: No edema
NEURO: Gross non-focal
SKIN: No rash
Impression / Plan
-
PCP: Lena Shay
Primary washing machine mechanic: Tova Chavez MD
Impression:
Elevated troponin
chest pain
Urosepsis
Paroxysmal atrial fibrillation
Hyperlipidemia
Renal cell cancer of right kidney
Right nephrectomy
Previous cardiovascular testing:
Lexiscan nuclear stress test 11/13/2023: Normal perfusion
Plan:
Paroxysmal atrial fibrillation vs SVT
- Upon review of telemetry, patient had ~ 8-minute episode of narrow complex tachycardia A-fib with RVR vs SVT
- CBB1NO3-PDHc score 1, age. Consider OAC.
-check TSH
- Check echocardiogram to evaluate for structural heart abnormalities/valvular heart disease
- Start Metoprolol 25 mg q6hr
Elevated troponin
- episode of left-sided chest pain early this morning, atypical for CAD, pleuritic in nature and worse with cough and has subsequently resolved
- Had nuclear stress test in 2023 that showed normal perfusion
- EKG without ischemic changes
- Trend troponin to peak
- If recurrent chest pain consider ischemic workup
- Check echo today
Urosepsis
- On IV antibiotics with treatment per primary team
- ID following
Data Reviewed
-
EKG: Tracing Personally Visualized and interpreted
Labs: Labs Reviewed by me
Old Records: Reviewed
[2025-09-19 13:58] LABS: Troponin I 0.791 ng/ml
[2025-09-19] MEDS: ANESTHETIC LOZENGE 1 LOZENGE PO (15:46)
[2025-09-19] MEDS: LOPRESSOR 5 MG IV (17:07)
[2025-09-19] MEDS: LOPRESSOR PO (17:15)
[2025-09-20] VITALS (9 sets, daily range): BP systolic 93–125; BP diastolic 60–78; PULSE 96–97; O2SAT 98
[2025-09-20] MEDS: HEPARIN 5000 UNITS SC ×4 (00:10→22:51)
[2025-09-20] MEDS: LOPRESSOR 25 MG PO ×2 (00:11→05:08)
[2025-09-20] MEDS: MAXIPIME 1000 MG IV ×2 (02:36→09:21)
[2025-09-20] MEDS: STERILE WATER FOR INJECTION 10 ML IV ×2 (02:36→09:21)
[2025-09-20] MEDS: NSS 1000 IV (02:44)
[2025-09-20] MEDS: TYLENOL 650 MG PO ×2 (02:56→22:06)
[2025-09-20] MEDS: ANESTHETIC LOZENGE 1 LOZENGE PO ×2 (03:31→17:34)
[2025-09-20] MEDS: OCEAN, SALINE MIST 1 SPRAYS NASAL (03:50)
[2025-09-20] MEDS: VENTOLIN NEBULES 1.25 MG INH (04:04)
[2025-09-20] MEDS: SYNTHROID 25 MCG PO (05:08)
--- NOTE | 2025-09-20 06:38 | W.PN.UPDATE ---
Update Note
Progress Note Update
RN reported patient stated he woke up woke up disoriented and 'hallucinating' and him and his are extremely worried. Patient seen, is on the phone. At present Patient is Ox3, reports he has been having strange drams and jumped up and felt
he was going to fall out of bed. Addressed UTI an cause him to have these hallucinations and confusion and should subside as infection subside. Supportive care provided. Fall precautions maintained. Patient and his verbalized understanding.
In AM patient requesting for a chest xray, RN stated patient has a 'junky cough, bringing clear sputum' Stable VS. not in any apparent distress, Albuterol provided for now.
[2025-09-20] MEDS: PULMICORT 0.5 MG INH ×2 (07:55→19:20)
[2025-09-20] MEDS: DUONEB 3 ML INH ×2 (07:55→19:20)
--- NOTE | 2025-09-20 08:10 | CON.PUL ---
Consultation
Consultation Request
Date/Time Consultation Requested: 09/20/2025
Date/Time Consultation Performed: 09/20/2025
Medical History
-
History of Present Illness:
Patient is a very pleasant 75-year-old gentleman with history of renal cell carcinoma status post nephrectomy with solitary kidney, BPH who presented to the emergency room with fever. Also patient had lower urinary tract symptoms. He was having
difficulty emptying bladder. Patient had been treated with antibiotic as outpatient for suspected UTI without improvement. Initially he was treated with Macrobid, subsequently changed to Bactrim. In view of ongoing chills he was brought to the
emergency room and noted to have sepsis with complicated UTI. Patient also noted to have urinary retention and had a Phillips catheter placed in the emergency room. IV fluid resuscitation was started in addition to broad-spectrum antibiotic. 09/20,
in the morning patient developed mild shortness of breath which improved after he sat up coughed some clear expectoration and subsequently received Pulmicort nebulized solution. Patient reportedly has history of mild intermittent asthma with rare
use of albuterol. Reported 1 episode of mild flare after an upper respite tract symptoms in the last 2 years, last use of prednisone and albuterol was about 3 weeks ago. Patient also reports of frequent symptoms suggestive of chronic allergic
rhinitis and has rare symptoms of gastroesophageal reflux disease. Patient does report URI symptoms particularly in high pollen load time which responded well to [id number]-[id number] antihistamines. Never been intubated or required BiPAP for his
asthma. Patient does not recall having had a pulmonary function testing in the past or follow-up with pulmonary clinic. In view of respiratory symptoms, pulmonary consultation was requested for further input.
Past Medical History
Past Medical History: Reports Other
Additional Past Medical History:
renal cell carcinoma
BPH
hypothyroidism
asthma
Past Surgical History: Reports Other
Additional Past Surgical History:
right nephrectomy 2016
eye surgery in childhood
Social History
Tobacco: Non-smoker
Alcohol: Occasional (3-4x week)
Drug: Marijuana (gummies PRN 2x week for pain )
Personal:
Living: With Family
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 No concerning occupational exposure reported per history.
Family History
Family History: Other (Mother: lung cancer; Father: DM, CAD, Alzheimer's; Brother: prostate cancer; brother: skin cancer )
Allergies / Home Medications
Allergies
Allergy/AdvReac Type Severity Reaction Status Date / Time
No Known Allergies Allergy Verified 09/18/25 19:41
Home Medications
�Medication �Instructions �Recorded �Confirmed �Last Taken �Type
biotin 1 mg tablet 1 mg PO DAILY Supplement 09/18/25 09/18/25 Unknown History
finasteride 5 mg tablet 5 mg PO DAILY Urinary Issue 09/18/25 09/18/25 Unknown History
levothyroxine 25 mcg tablet 25 mcg PO DAILY Thyroid 09/18/25 09/18/25 Unknown History
multivitamin 1 tab PO DAILY Supplement 09/18/25 09/18/25 Unknown History
sildenafil 100 mg tablet (Viagra) 100 mg PO PRN PRN intercourse 09/18/25 09/18/25 Unknown History
tadalafil 10 mg tablet 10 mg PO DAILY Urinary Issue 09/18/25 09/18/25 Unknown History
vitamin B complex 1 cap PO DAILY Supplement 09/18/25 09/18/25 Unknown History
Review of Systems
-
Hematologic/Lymphatic: Other (All 14 systems reviewed and negative except as stated above in the history of present illness.)
Vitals / Labs / Diagnostic Testing
Vital Signs
Temp Pulse Resp BP Pulse Ox
99.9 F 102 18 104/68 97
09/20/25 03:02 09/20/25 07:58 09/20/25 07:58 09/20/25 05:08 09/20/25 07:58
Microbiology
09/18/25 20:16 Nasal Swab Influenza Types A & B (MORGAN) - Final
Negative for Influenza A & B, NAAT
Negative results must be combined with clinical observations
and patient history.
Nucleic Acid Amplification test (NAAT)performed on the
[employer] NOW platform.
Diagnostic Testing:
Physical Exam
-
HEENT: Normocephalic
Cardiovascular: S1/S2 and Peripheral Edema (Trace pedal edema, bilaterally.)
Respiratory: Rales (Few basilar inspiratory rales in the posterior lower thorax.)
GI: Soft and Non Distended
Neurology: Awake, Alert and Oriented
Skin: Warm
General: Comfortable
Assessment
-
#1. Dyspnea
- Suspect volume overload as primary etiology.
- Elevated BNP noted on admission, as well as trace pleural effusions, which appear slightly enlarged with IVF resuscitation
- d/c IVF, Lasix 20 mg IV x 1 stat
- O2 as needed. Await ECHO cardiogram. Bilateral effusions are trace, too small for safe thoracentesis.
- Influenza A, B, COVID-19 screen negative. Blood cultures and urine culture pending. Has been on cefepime for UTI
#2. Mild intermittent asthma
- No wheezing on exam this AM
- Recently started on Pulmicort BID and PRN Albuterol, continue for now
- Historically rare use of Albuterol, 1 flare in last 2 years, required short course of steroids and albuterol about 3 weeks ago after URI
- Recommend out patient follow up with [facility] Pulmonary clinic, information added to the d/c section
- Eosinophil count 200. Will check IgE, RAST panel and PFTs as out patient. Reported h/o perennial Allergic rhinitis and rare GERD symptoms.
Other medical diagnosis:
- Sepsis with Complicated UTI, currently on cefepime, infectious disease service on case
- History of renal cell cancer, s/p nephrectomy, has solitary kidney, Phillips catheter currently in place
- BPH with urinary retention. Phillips in place.
- Hypothyroidism
- Elevated troponin with paroxysmal A-fib versus atrial tachycardia. Workup in progress, cardiology service on case, continue telemetry and await echocardiogram.
- EBENEZER, obstructive uropathy as well as sepsis with UTI. Status post IV fluid resuscitation. Hold additional IV fluids, monitor labs.
Total time spent on this consultation/encounter _65___ minutes which includes review of history, physical exam, medications, laboratory data, personal review of imaging, extensive review of outpatient records, discussion with care team and
respiratory therapy.
Data:
CXR 09/2025: Mild blunting of the posterior costophrenic angles bilaterally. Correlating with earlier CT of the abdomen and pelvis obtained this same date, there is amount of pleural fluid bilaterally as well as mild basilar atelectasis.
CT A/P 09/2025: The urinary bladder is significantly distended and lobulated, estimated volume of 1380 cc. Slight stranding of the fat surrounding the urinary bladder, suggesting the possibility of cystitis. 2.3 cm cyst arising in the lateral aspect
of the left mid kidney. No other focal abnormality of the left kidney.
Status post right nephrectomy.
Prostate gland is enlarged, extending into the base of the bladder.
Trace amount of pleural fluid within the posterior lower chest bilaterally.
Fatty infiltration the liver.
Bony degenerative changes as described.
Lexiscan 11/2023: Normal perfusion imaging
[2025-09-20] MEDS: MIRALAX PO (08:20)
[2025-09-20] MEDS: PROSCAR 5 MG PO (08:25)
[2025-09-20] MEDS: TOPROL XL 25 MG PO (08:26)
[2025-09-20 09:05] LABS: Hematocrit 33.6 % (39.0-52.0); Hemoglobin 11.0 g/dL (13.0-18.0); Mean Corp Hgb Conc. 32.7 g/dL (33.0-37.0); Mean Corpuscular Volume 95.5 fL (80.0-94.0); Platelet Count 251 10^3/uL (130-400); Red Cell Dist. Width 13.1 % (11.5-14.5)
[2025-09-20 09:09] LABS: Blood Urea Nitrogen 12 mg/dl (9-20); Calcium 8.2 mg/dl (8.4-10.2); Carbon Dioxide 22 mmol/L (22-30); Chloride 105 mmol/L (98-107); Estimated Creatinine Clearance 71 ml/min; Glucose 124 mg/dl (70-99); Potassium 4.3 mmol/L (3.5-5.1); Sodium 133 mmol/L (135-145); eGFR > 60.00
[2025-09-20] MEDS: LASIX 20 MG IV (09:20)
[2025-09-20 09:44] LABS: TSH 2.85 uIU/ml (0.47-4.68)
--- NOTE | 2025-09-20 10:16 | W.PN.HOSP.TC ---
Today's Communication/Plan
-
Will continue Lasix therapy as blood pressure tolerates. Stop IV fluid. Consistent with acute noncardiogenic pulmonary edema from sepsis and fluid resuscitate
Await echocardiogram
Change metoprolol to Toprol-XL twice daily
Will accept episodes of tachycardia for now
Continue with Pulmicort inhalation
Voiding trial in a.m./orders are placed
Assessment / Plan
Assessment / Plan
Physical Exam
General: Well Developed, Well Nourished, No Apparent Distress, Comfortable and Conversant
HEENT: NormoCephalic, PERRLA, Nose Appears Normal and Ears Appear Normal
Respiratory: Clear and Non Labored Respirations
Cardiac: S1/S2 and Regular Rhythm; No Murmur or Peripheral Edema
GI: Soft, Non Tender, Non Distended and Normal Bowel Sounds
Genito-urinary: Clear Urine, No costovertebral tender and Phillips
Musculoskeletal: No Clubbing, No Cyanosis and No Edema
Skin: Warm and IV/Catheter Site
Neuro: Awake and AO x 3
Psych: Calm and Intact Judgment/Insight
#sepsis 2/2 urinary tract infection
patient treated with Macrobid and Bactrim outpatient and treatment failed
He is feeling better
Urine and blood culture no growth
Suspect we will have low sensitivity culture due to prior use of antibiotics
Continue cefepime to q 8 to right dose for sepsis
Appreciate ID help
# TME
improved
Monitor,
Non focal
# Acute respiratory distress
Patient reports cough and feeling congested. Chest x-ray and clinical examination consistent with pulmonary congestion
Suspect underlying acute pulmonary edema/noncardiogenic from sepsis and IV fluid resuscitation
Will give Lasix treatment
Hopefully will be able to stop antibiotic
Continue with Pulmicort. No wheezes on exam.
Appreciate pulmonary input
# Episode of atrial tachycardia/SVT
Discussed with housekeeping aide. Started on metoprolol, will increase dose and changed to extended release
Await echocardiogram
Appreciate cardiology input
#acute urinary retention likely 2/2 UTI with prior history of retention. History of BPH. Patient follows with Ubaldo larseny. He is under close observation and has upcoming appointment. We will do a voiding trial after treating the infection. If
fails, will send home with Phillips to follow-up with his primary urology
- Phillips placed in ED plan for voiding trial in a.m.
#acute kidney injury
Resolved
#BPH
- continue finasteride and tadalafil
# Hyponatremia, no confusion, lucid
# Nonischemic myocardial injury secondary to sepsis
No chest pain.
Nuclear stress test in 2023 was low probability for CAD
EKG, no ischemic change
Monitor on telemetry, ordered telemetry
No need to trend troponin anymore
Await echocardiogram
Appreciate cardiology input
#constipation
patient unsure of last BM
- daily Miralax
#hypothyroidism
- continue levothyroxine
TSH is normal
#renal cell carcinoma
s/p nephrectomy 2015
Followed with U[facility] Echols (no chemo and no radiation)
Code status: full code
DVT prophylaxis: heparin sq
Total time spent to see the patient, examine the patient, review data and lab results, discuss treatment plan with patient, nursing staff around 55 minutes
Anticipated Discharge: > 48 hours
Subjective/Interval History
-
Date of Service: September 20, 2025
he has sob over night but resolved now
He had delirium over night also resolved now
Objective Data
-
Labs:
Laboratory Results
09/20/25
07:33
WBC 9.6
Hgb 11.0 L
Hct 33.6 L
Plt Count 251 D
Sodium 133 L
Potassium 4.3
Chloride 105
Carbon Dioxide 22
BUN 12
Creatinine 1.0
Glucose 124 H
Calcium 8.2 L
Vital Signs:
Vital Signs
Temp Pulse Resp BP Pulse Ox
99.2 F 120 18 97/57 97
09/20/25 07:25 09/20/25 09:20 09/20/25 07:58 09/20/25 09:20 09/20/25 07:58
I&O
09/19/25 09/20/25 09/21/25
06:59 06:59 06:59
Intake Total 0 / 0 3230 / 3230
Output Total 2074 1725 / 1725
Balance -2074 / 1505 / 1505
--- NOTE | 2025-09-20 15:33 | W.PN.CARDCBS ---
Addendum entered and electronically signed by Ayden Tellez MD 09/20/25 16:01:
I saw and examined the patient.
The SECONDARY MARKET MANAGER or PA's note was reviewed and I agree with the note.
Comment: General: Well developed, well nourished in NAD.
Neck: Supple, no JVD, HJR, carotids +2 B/L, no bruits bilaterally.
Heart: Non displaced PMI, RRR, no murmurs, No S3, S4, no rubs.
Lungs: Clear to auscultation bilaterally, no wheeze, rhonchi, rubs bilaterally,
normal expiratory phase.
Extremities: No clubbing, cyanosis or edema bilaterally.
Neuro: Grossly nonfocal, awake, alert and oriented x3.
Telemetry with continued episodes of probable atrial tachycardia. Discussed with primary service and would like to hold off on anticoagulation given bladder diverticulum and possible urinary retention with potential for hematuria. Will increase
Toprol dose and assess response. Await echocardiogram. Will need outpatient ischemic evaluation unless echocardiogram reveals regional wall motion abnormalities then we will need to consider cardiac catheterization. If not anticoagulated will
need monitor on discharge. Discussed with patient, primary service, and family at bedside.
Original Note:
Today's Communication / Plan
-
lopressor transitioned to toprol
follow on tele
check echo
will likely need OP monitoring tech and ischemic eval
Impression / Plan
-
PCP: Lena Shay
Primary sales lead: Tova Chavez MD
Impression:
Fever
Urosepsis
EBENEZER, resolved
Elevated troponin
Chest pain
Paroxysmal AF vs Atach, new diagnosis of unclear duration
acute noncardiogenic pulmonary edema
Hyperlipidemia
Renal cell cancer of right kidney
Right nephrectomy
BPH
Previous cardiovascular testing:
Lexiscan nuclear stress test 11/13/2023: Normal perfusion
ECHO 09/20/25: pending
Plan:
- Patient presented with fever and is being treated for urosepsis per primary service. Continue antibiotic therapy
- Cardiology consulted as noted to have tachycardia on telemetry, felt to be consistent with paroxysmal A-fib versus A. tach. Remains with runs on review of telemetry overnight and today. Reviewed with EP, feels most consistent with atach.
- TSH within normal limits
- Echo pending
- lopressor transitioned to toprol 50 mg twice daily today. May need to consider for antiarrhythmic drug therapy if rates remain refractory to uptitration of BB
- [id number] score of 1 for age. There is concern from primary service for development of hematuria with initiation of anticoagulation. Thus far blood and urine cultures have been without growth
- may require OP monitoring tech
- had some delirium and SOB overnight. proBNP 2250. CXR 09/20 with small B/L pleural effusions. was given 20mg IV lasix this AM and for 20mg po lasix this evening. assess response. Cr improving at 1.0
- Also had some chest pain felt to be atypical, however did have associated troponin elevation to 0.8 and downtrending. EKG without acute ischemic change. Would plan for OP ischemic eval unless develops recurrent symptoms. nuc stress in 2023 with
normal perfusion
Progress Note - Radiator Fitter
Subjective
Date of Service: September 20, 2025
had delirium and SOB overnight, now improved
Objective
Labs:
09/20/25 07:33
09/20/25 07:33
Labs
Hgb 11.0 g/dL (13.0-18.0) L 09/20/25 07:33
Hct 33.6 % (39.0-52.0) L 09/20/25 07:33
Plt Count 251 10^3/uL (130-400) D 09/20/25 07:33
Sodium 133 mmol/L (135-145) L 09/20/25 07:33
Potassium 4.3 mmol/L (3.5-5.1) 09/20/25 07:33
BUN 12 mg/dl (9-20) 09/20/25 07:33
Creatinine 1.0 mg/dL (0.7-1.3) 09/20/25 07:33
Glucose 124 mg/dl (70-99) H 09/20/25 07:33
Troponins
09/19/25 09/19/25 09/19/25
06:08 11:18 13:06
Troponin I 0.692 H* 0.861 H* 0.791 H*
09/19/25
18:00
Troponin I Cancelled
Vital Signs and I&O:
Vital Signs
Temp Pulse Resp BP Pulse Ox
99.0 F 96 18 125/68 96
09/20/25 11:08 09/20/25 11:08 09/20/25 11:08 09/20/25 11:08 09/20/25 11:08
Vital Signs
Temp Pulse Resp BP Pulse Ox
99.0 F 96 18 125/68 96
09/20/25 11:08 09/20/25 11:08 09/20/25 11:08 09/20/25 11:08 09/20/25 11:08
Intake & Output
09/18/25 09/19/25 09/20/25 09/21/25
07:59 07:59 07:59 07:59
Intake Total 0 / 0 3230 / 3230
Output Total 2074 1725 / 172
Balance -2074 1505 / 1505
--- NOTE | 2025-09-20 15:38 | W.PN.ID1 ---
Date of Service
Date of Service: September 20, 2025
Today's Communication
Continue antibiotics. Transition cefepime to ciprofloxacin.
Assessment / Plan
Complicated urinary tract infection
Leukocytosis
Fever
EBENEZER; improved
Urinary retention
BPH
Hx renal cell carcinoma
Hypothyroidism
Asthma
Recommendations:
Outpatient cultures reviewed, with noted growth of Morganella morganii, sensitive to fluoroquinolones.
Transition to ciprofloxacin 500 mg p.o. BID
Monitor white count and temperature curve.
Patient reports longstanding issues with urinary retention. Will need close outpatient monitoring with his Urologist.
����������������������������������������������������������
Chief Complaint
-: UTI
Subjective / Review of Systems
Review of Systems: No Fever
Vital Signs / Physical Exam
Vital Signs
Vital Signs
Temp Pulse Resp BP Pulse Ox
99.0 F 96 18 125/68 96
09/20/25 11:08 09/20/25 11:08 09/20/25 11:08 09/20/25 11:08 09/20/25 11:08
Physical Exam
Constitutional: No Acute Distress, Comfortable and Non-toxic
Cardiovascular: S1/S2; Negative S3/S4
Gastrointestinal: Soft and Non Distended
Neurological: Awake
Psychological: Calm
Objective Data
Lab Data
Lab Results
09/20/25 07:33
09/20/25 07:33
Estimated Creat Clear 71 ml/min 09/20/25 07:33
Lactic Acid 1.1 mmol/L (0.7-2.0) 09/18/25 20:16
Total Bilirubin 0.6 mg/dl (0.2-1.3) 09/18/25 20:16
AST 34 U/L (17-59) 09/18/25 20:16
ALT 32 U/L (0-50) 09/18/25 20:16
Alkaline Phosphatase 79 U/L (38-126) 09/18/25 20:16
Most recent labs reviewed.
Micro Results:
09/19/25 11:18 Blood Culture - Preliminary
Blood/Venous No Growth in 24 hours- Final report to follow
09/18/25 20:17 Urine Culture - Final
Urine NO GROWTH
09/18/25 20:16 Influenza Types A & B (MORGAN) - Final
Nasal Swab Negative for Influenza A & B, NAAT
Negative results must be combined with clinical observations
and patient history.
Nucleic Acid Amplification test (NAAT)performed on the
[employer] platform.
Imaging:
09/18/2025 CXR (2 view): mild blunting of the posterior costophrenic angles bilaterally. No overt infiltrates.
09/18/2025 CT abdomen/pelvis without contrast: urinary bladder is significantly distended and lobulated with an estimated volume of 1380 cc. Slight stranding of the fat surrounding the urinary bladder suggesting the possibility of cystitis. There
is a 2.3 cm cyst arising in the lateral aspect of the left mid kidney. He is status post right nephrectomy. Prostate gland is enlarged and extends into the base of the bladder. Please see full dictation for additional detail. Film personally
viewed.
--- NOTE | 2025-09-20 16:39 | CM ---
IA completed. Pt is independent with ADLs and IADLs. Lives in 2 story home with ; 1 step at the entrance. Full bathroom on the 2nd floor: 13 steps to second floor. No DME, home O2, HH or SNF. No insecurities identified. Confirmed PCP, Rx,
[id number] and drug coverage
PCP: Nayely Shay
Rx: Elver/Mohamud
Transitioned to PO ABX. ECHO pending
Plan: Home with no need
[2025-09-20] MEDS: ROBITUSSIN DM 10 ML PO ×2 (17:34→23:09)
[2025-09-20] MEDS: LOPRESSOR 5 MG IV (18:04)
[2025-09-20] MEDS: TOPROL XL 50 MG PO (20:17)
[2025-09-20] MEDS: CIPRO 500 MG PO (20:18)
[2025-09-20] MEDS: LOPRESSOR 2.5 MG IV (22:50)
[2025-09-21] VITALS (16 sets, daily range): BP systolic 68–115; BP diastolic 42–73; PULSE 96–120; O2SAT 96; BMI 31.3
--- NOTE | 2025-09-21 02:31 | W.PN.UPDATE ---
Update Note
Progress Note Update
RN reported HR 110-160's 108/60, afebrile, patient asymptomatic, received Metoprolol 50mg at 1999
will ordered metoprolol 2.5mg IV.
Patient received prn dose of Metoprolol 5mg IV
HR 90's-120's at present.
[2025-09-21] MEDS: SYNTHROID 25 MCG PO (05:50)
[2025-09-21] MEDS: PULMICORT 0.5 MG INH ×2 (07:12→19:29)
[2025-09-21] MEDS: CIPRO 500 MG PO ×2 (09:02→19:56)
[2025-09-21] MEDS: HEPARIN 5000 UNITS SC ×2 (09:02→16:08)
[2025-09-21] MEDS: PROSCAR 5 MG PO (09:02)
[2025-09-21] MEDS: TOPROL XL 50 MG PO (09:03)
[2025-09-21] MEDS: MIRALAX PO (09:04)
--- NOTE | 2025-09-21 10:03 | W.PN.HOSP.TC ---
Today's Communication/Plan
-
.
Assessment / Plan
Assessment / Plan
Physical Exam
General: Well Developed, Well Nourished, No Apparent Distress, Comfortable and Conversant
HEENT: NormoCephalic, PERRLA, Nose Appears Normal and Ears Appear Normal
Respiratory: Clear and Non Labored Respirations
Cardiac: S1/S2 and Regular Rhythm; No Murmur or Peripheral Edema
GI: Soft, Non Tender, Non Distended and Normal Bowel Sounds
Genito-urinary: Clear Urine, No costovertebral tender and Phillips if off
Musculoskeletal: No Clubbing, No Cyanosis and No Edema
Skin: Warm
Neuro: Awake and AO x 3
Psych: Calm and Intact Judgment/Insight
#sepsis 2/2 urinary tract infection
patient treated with Macrobid and Bactrim outpatient and treatment failed
He is feeling better
Urine and blood culture no growth
Suspect we will have low sensitivity culture due to prior use of antibiotics
s/p IV cefepime, changed to Cipro
Outpatient cultures reviewed, with noted growth of Morganella morganii, sensitive to fluoroquinolones.
Appreciate ID help
# TME
improved
Monitor,
Non focal
# Acute respiratory distress due to acute newly diagnosed systolic heart failure
Newly diagnosed atrial fibrillation
Patient reports cough and feeling congested. Chest x-ray and clinical examination consistent with pulmonary congestion
After echo, pt had Acute HFr failure exacerbated by sepsis and IV fluid resuscitation. Also possibility of tachycardia induced CMP
s/p Lasix treatment
Continue with Pulmicort. No wheezes on exam.
d/w cardiology, rate control with amiodarone, BB and CCB
Appreciate pulmonary and cardiology help
#acute urinary retention likely 2/2 UTI with prior history of retention. History of BPH. Patient follows with [facility]. He is under close observation and has upcoming appointment. We will do a voiding trial after treating the infection. If
fails, will send home with Jacqueline to follow-up with his primary urology
#acute kidney injury
Resolved
#BPH
- continue finasteride and tadalafil
# Hyponatremia, no confusion, lucid
# Nonischemic myocardial injury secondary to sepsis
No chest pain.
Nuclear stress test in 2023 was low probability for CAD
EKG, no ischemic change
will need OP follow up with cardiology
# Hyponatremia
Will do fluid restriction
#constipation
patient unsure of last BM
- daily Miralax
#hypothyroidism
- continue levothyroxine
TSH is normal
#renal cell carcinoma
s/p nephrectomy 2015
Followed with Ubaldo Echols (no chemo and no radiation)
Code status: full code
DVT prophylaxis: heparin sq
Total time spent to see the patient, examine the patient, review data and lab results, discuss treatment plan with patient, nursing staff around 55 minutes
Anticipated Discharge: > 48 hours
Subjective/Interval History
-
Date of Service: September 21, 2025
He feels better overall
No fevers
No chest pain
Sometimes sob / cough
Objective Data
-
Labs:
Laboratory Results
09/21/25
09:42
Sodium Pending
Potassium Pending
Chloride Pending
Carbon Dioxide Pending
BUN Pending
Creatinine Pending
Glucose Pending
Calcium Pending
Vital Signs:
Vital Signs
Temp Pulse Resp BP Pulse Ox
98.5 F 138 18 97/63 96
09/21/25 08:07 09/21/25 09:03 09/21/25 08:07 09/21/25 09:03 09/21/25 08:07
I&O
09/20/25 09/21/25 09/22/25
06:59 06:59 06:59
Intake Total 3230 / 3230 960 / 960
Output Total 1725 / 1725 3250 / 3250
Balance 1505 / 1505 -2290 / -2290
[2025-09-21] MEDS: LOPRESSOR 5 MG IV (10:30)
[2025-09-21 10:41] LABS: Blood Urea Nitrogen 15 mg/dl (9-20); Calcium 8.7 mg/dl (8.4-10.2); Carbon Dioxide 24 mmol/L (22-30); Chloride 100 mmol/L (98-107); Estimated Creatinine Clearance 80 ml/min; Glucose 117 mg/dl (70-99); Potassium 4.2 mmol/L (3.5-5.1); Sodium 128 mmol/L (135-145); eGFR > 60.00
[2025-09-21] MEDS: CARDIZEM 125 IV (11:45)
[2025-09-21] MEDS: PACERONE 400 MG PO ×2 (11:46→16:08)
--- NOTE | 2025-09-21 12:03 | PTCARENOTE ---
pt has not voided since gorman catheter was taken out at 0600. bladder scan shows 296 cc urine in pt bladder. made MD aware, per MD, wait another two hours and reassess.
--- NOTE | 2025-09-21 12:19 | W.PN.CARDCBS ---
Addendum entered and electronically signed by Kev Goff MD 09/21/25 12:43:
I saw and examined the patient.
The Cash Processing Specialist's note was reviewed and I agree with the note.
Comment:
GEN: No distress, awake, Ox3
HEENT: supple, anicteric, mmm
LUNGS: CTA, no wheezes/rales
CV: Irreg, S1/S2, 1/6 syst LSB, no gallop
ABD: soft, BS+, NT/ND
EXT: No edema
NEURO: Gross non-focal
SKIN: No rash
Plan:
Appears to be in atrial fibrillation today with poorly controlled rates. Will start Cardizem drip to attempt to improve rate control strategy.
Will add amiodarone 40 mg p.o. 3 times daily. Continue Toprol 50 mg daily.
Will follow EKG. With his recent hematuria and urosepsis we will hold off on starting IV heparin for now but with [id number] score of 3 likely will need anticoagulation.
If his ventricular rates are poorly controlled would consider JOVANI cardioversion at end of the week. Hopefully amiodarone improves ventricular rates and helps maintain sinus rhythm.
He was in sinus rhythm yesterday.
His hyponatremia is worse today.
Echocardiogram revealed EF of 43%. He will need an ischemic evaluation when he is over his infection. I would likely recommend cardiac cath for him.
Continue Toprol for now.
Original Note:
Today's Communication / Plan
-
Start Cardizem gtt ordered rate 10 mg/hr now
Start amiodarone 400 mg TID now
ECG pending for now and repeat ECG in a.m. to follow QTc
If ECG confirms A-fib then consider starting OAC
Impression / Plan
-
PCP: Lena Shay
Primary top cutter: Tova Chavez MD
Impression:
Fever
Urosepsis
EBENEZER, resolved
Elevated troponin
Chest pain
Paroxysmal AF vs Atach, new diagnosis of unclear duration
acute noncardiogenic pulmonary edema
Hyperlipidemia
Renal cell cancer of right kidney
Right nephrectomy
BPH
CM, EF 43% by echo 09/20/2025
Mild to moderate MR
Previous cardiovascular testing:
Lexiscan nuclear stress test 11/13/2023: Normal perfusion
ECHO 09/20/25: EF 43%, mildly dilated RV with normal systolic function, mild aortic regurgitation, mild to moderate MR
Plan:
-Patient presented with fever and is being treated for urosepsis per primary service. Continue antibiotic therapy
-Cardiology following patient for newly diagnosed atrial tachycardia seen starting 09/19/2025. Telemetry reviewed by me 09/21/2025 and it looks like he has been in more persistent atrial fibrillation since about 0230 on 09/21/2025. Atrial
arrhythmias are new diagnosis this admission.
-Check ECG to confirm, order placed by cardiology 09/21/2025. Will review ECG once obtained
-Talked with patient, and daughter at bedside at length on 09/21/2025 and we reviewed the pathophysiology of atrial arrhythmias and discussed different atrial arrhythmias including atrial tachycardia, fibrillation and flutter. We talked about
OAC and rate control versus rhythm control therapy.
-Patient has Phillips catheter in place for urinary retention and there is a history of renal cell carcinoma and previous right nephrectomy and current sepsis admission thought to be related to UTI. Patient had 2+ blood on UA on admission, but no
chiki hematuria at present.
-If ECG confirms atrial fibrillation then we would like to start OAC
-Start Cardizem gtt at ordered rate 10 mg/hr to help with HR control
-Start amiodarone 400 mg TID to help with adjunct rate control. ECG from 09/19/2025 reviewed by me and QTc at that time was 459 ms. Recheck ECG in a.m. as well, this and all other orders as noted above replaced by cardiology 09/21/2025
-EF is 43% by echo 09/20/2025. Echo was reviewed with patient, and daughter at bedside on 09/21/2025. EF was previously preserved during stress test 11/2023. No complaints of chest pain. No WMA on echo. Troponin peaked at 0.861. Recommend
outpatient stress test.
-New to Toprol-XL 50 mg BID this admission
-Unable to add AIDE/ARB/aldosterone antagonist due to hypotension, BP 96/69 with high dose AV laura blockers for rate control
Progress Note - Furnace Door Tender
Subjective
Date of Service: September 21, 2025
He denies palpitations
Objective
Labs:
09/20/25 07:33
09/21/25 09:42
Labs
Hgb 11.0 g/dL (13.0-18.0) L 09/20/25 07:33
Hct 33.6 % (39.0-52.0) L 09/20/25 07:33
Plt Count 251 10^3/uL (130-400) D 09/20/25 07:33
Sodium 128 mmol/L (135-145) L 09/21/25 09:42
Potassium 4.2 mmol/L (3.5-5.1) 09/21/25 09:42
BUN 15 mg/dl (9-20) 09/21/25 09:42
Creatinine 0.9 mg/dL (0.7-1.3) 09/21/25 09:42
Glucose 117 mg/dl (70-99) H 09/21/25 09:42
Troponins
09/19/25 09/19/25 09/19/25
06:08 11:18 13:06
Troponin I 0.692 H* 0.861 H* 0.791 H*
09/19/25
18:00
Troponin I Cancelled
Vital Signs and I&O:
Vital Signs
Temp Pulse Resp BP Pulse Ox
97.8 F 117 18 96/69 96
09/21/25 11:10 09/21/25 11:46 09/21/25 11:10 09/21/25 11:46 09/21/25 11:10
Vital Signs
Temp Pulse Resp BP Pulse Ox
97.8 F 117 18 96/69 96
09/21/25 11:10 09/21/25 11:46 09/21/25 11:10 09/21/25 11:46 09/21/25 11:10
Intake & Output
09/19/25 09/20/25 09/21/25 09/22/25
06:59 06:59 06:59 06:59
Intake Total 0 / 0 3230 / 3230 960 / 960
Output Total 2074 / 2074 1725 / 1725 3250 / 3250
Balance -2074 / -2074 1505 / 1505 -2290 / -2290
Physical Exam
Physical Exam
GEN: AAO x 3
LUNGS: RA. No audible wheeze
CV: A-fib on telemetry. Irreg irreg
EXT: No edema B/L LE
NEURO: Gross non-focal
SKIN: No rash
--- NOTE | 2025-09-21 13:18 | W.PN.PUL3 ---
Today's Communication / Plan
-
- Start Lasix 20 mg PO daily
- F/u CXR in AM
Assessment
-
Patient is a very pleasant 75-year-old gentleman with history of renal cell carcinoma status post nephrectomy with solitary kidney, BPH who presented to the emergency room with fever. Also patient had lower urinary tract symptoms. He was having
difficulty emptying bladder. Patient had been treated with antibiotic as outpatient for suspected UTI without improvement. Initially he was treated with Macrobid, subsequently changed to Bactrim. In view of ongoing chills he was brought to the
emergency room and noted to have sepsis with complicated UTI. Patient also noted to have urinary retention and had a Phillips catheter placed in the emergency room. IV fluid resuscitation was started in addition to broad-spectrum antibiotic. 09/20,
in the morning patient developed mild shortness of breath which improved after he sat up coughed some clear expectoration and subsequently received Pulmicort nebulized solution. Patient reportedly has history of mild intermittent asthma with rare
use of albuterol. Reported 1 episode of mild flare after an upper respite tract symptoms in the last 2 years, last use of prednisone and albuterol was about 3 weeks ago. Patient also reports of frequent symptoms suggestive of chronic allergic
rhinitis and has rare symptoms of gastroesophageal reflux disease. Patient does report URI symptoms particularly in high pollen load time which responded well to fxdx-gaf-rhjmdly antihistamines. Never been intubated or required BiPAP for his
asthma. Patient does not recall having had a pulmonary function testing in the past or follow-up with pulmonary clinic. In view of respiratory symptoms, pulmonary consultation was requested for further input.
#1. 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
- Suspect volume overload as primary etiology, with new diagnosis if HFmrEF
- Elevated BNP noted on admission, as well as trace pleural effusions, which appeared slightly enlarged with IVF resuscitation in f/u imaging
- 09/20, stopped IVF, Lasix 20 mg IV x 1 stat given with good diuresis.
- ECHO suggestive of decreased EF, 43%. Bilateral effusions are trace, too small for safe thoracentesis.
- Influenza A, B, COVID-19 screen negative. Blood cultures and urine culture pending. Has been on cefepime for UTI
- Start Lasix 20 mg daily, PO. f/u CXR in AM.
#2. Mild intermittent asthma
- No wheezing on exam this AM
- Recently started on Pulmicort BID and PRN Albuterol, continue for now
- Historically rare use of Albuterol, 1 flare in last 2 years, required short course of steroids and albuterol about 3 weeks ago after URI
- Recommend out patient follow up with [facility], information added to the d/c section
- Eosinophil count 200. Will check IgE, RAST panel and PFTs as out patient. Reported h/o perennial Allergic rhinitis and rare GERD symptoms.
Other medical diagnosis:
- Sepsis with Complicated UTI, currently on cefepime, infectious disease service on case
- History of renal cell cancer, s/p nephrectomy, has solitary kidney, Phillips catheter currently in place
- BPH with urinary retention. Phillips in place.
- Hypothyroidism
- Elevated troponin with paroxysmal A-fib versus atrial tachycardia. Workup in progress, cardiology service on case, continue telemetry. Currently on Amiodarone, Metoprolol and Cardizem infusion.
- EBENEZER, obstructive uropathy as well as sepsis with UTI. Status post IV fluid resuscitation. Hold additional IV fluids, monitor labs.
Total time spent on this consultation/encounter _45___ minutes which includes review of history, physical exam, medications, laboratory data, personal review of imaging, extensive review of outpatient records, discussion with care team and
respiratory therapy.
Updated family at bedside
Data:
CXR 09/2025: Mild blunting of the posterior costophrenic angles bilaterally. Correlating with earlier CT of the abdomen and pelvis obtained this same date, there is amount of pleural fluid bilaterally as well as mild basilar atelectasis.
CT A/P 09/2025: The urinary bladder is significantly distended and lobulated, estimated volume of 1380 cc. Slight stranding of the fat surrounding the urinary bladder, suggesting the possibility of cystitis. 2.3 cm cyst arising in the lateral aspect
of the left mid kidney. No other focal abnormality of the left kidney.
Status post right nephrectomy.
Prostate gland is enlarged, extending into the base of the bladder.
Trace amount of pleural fluid within the posterior lower chest bilaterally.
Fatty infiltration the liver.
Bony degenerative changes as described.
Lexiscan 11/2023: Normal perfusion imaging
Subjective Data
-
Date of Service:
Date of Service: September 21, 2025
Objective Data
Data Reviewed
Vital Signs / I&O / Oxygen:
Vital Signs
Temp Pulse Resp BP Pulse Ox
97.8 F 115 18 94/63 96
09/21/25 11:10 09/21/25 12:30 09/21/25 11:10 09/21/25 12:30 09/21/25 11:10
Intake and Output
09/20/25 09/21/25 09/22/25
06:59 06:59 06:59
Intake Total 3230 / 3230 960 / 960
Output Total 1725 / 1725 3250 / 3250
Balance 1505 / 1505 -2290 / -2290
SaO2 96
Labs/Micro/Reports
Lab Data
09/20/25 07:33
09/21/25 09:42
Microbiology
09/19/25 11:18 Blood/Venous Blood Culture - Preliminary
No Growth in 48 hours- Final report to follow
09/18/25 20:17 Urine Urine Culture - Final
NO GROWTH
09/18/25 20:16 Nasal Swab Influenza Types A & B (MORGAN) - Final
Negative for Influenza A & B, NAAT
Negative results must be combined with clinical observations
and patient history.
Nucleic Acid Amplification test (NAAT)performed on the
[employer] platform.
--- NOTE | 2025-09-21 15:29 | W.PN.ID1 ---
Date of Service
Date of Service: September 21, 2025
Today's Communication
Continue current antibiotics.
Assessment / Plan
Complicated urinary tract infection secondary to Morganella morganii
Leukocytosis
Fever
EBENEZER; improved
Urinary retention
BPH
Hx renal cell carcinoma
Hypothyroidism
Asthma
Recommendations:
Outpatient cultures reviewed, with noted growth of Morganella morganii, sensitive to fluoroquinolones.
Continue ciprofloxacin 500 mg p.o. BID
Monitor white count and temperature curve.
Chart reviewed, and patient now with acute HFmrEF, LVEF 43%. Pulmonary and Cardiology following.
Patient reports longstanding issues with urinary retention. Will need close outpatient monitoring with his Urologist.
����������������������������������������������������������
Chief Complaint
-: UTI
Subjective / Review of Systems
Review of Systems: No Fever and No Chills
Vital Signs / Physical Exam
Vital Signs
Vital Signs
Temp Pulse Resp BP Pulse Ox
97.8 F 115 18 94/63 96
09/21/25 11:10 09/21/25 12:30 09/21/25 11:10 09/21/25 12:30 09/21/25 11:10
Physical Exam
Constitutional: No Acute Distress, Comfortable and Non-toxic
Cardiovascular: S1/S2; Negative S3/S4
Pulmonary: Clear and Non Labored; Negative Wheezes or Rales
Gastrointestinal: Soft, Non Distended and Normal Bowel Sounds
Skin: Warm and Dry; Negative Rash
Neurological: Awake
Psychological: Calm
Objective Data
Lab Data
Lab Results
09/20/25 07:33
09/21/25 09:42
Estimated Creat Clear 80 ml/min 09/21/25 09:42
Lactic Acid 1.1 mmol/L (0.7-2.0) 09/18/25 20:16
Total Bilirubin 0.6 mg/dl (0.2-1.3) 09/18/25 20:16
AST 34 U/L (17-59) 09/18/25 20:16
ALT 32 U/L (0-50) 09/18/25 20:16
Alkaline Phosphatase 79 U/L (38-126) 09/18/25 20:16
Most recent labs reviewed.
Micro Results:
09/19/25 11:18 Blood Culture - Preliminary
Blood/Venous No Growth in 48 hours- Final report to follow
09/18/25 20:17 Urine Culture - Final
Urine NO GROWTH
09/18/25 20:16 Influenza Types A & B (MORGAN) - Final
Nasal Swab Negative for Influenza A & B, NAAT
Negative results must be combined with clinical observations
and patient history.
Nucleic Acid Amplification test (NAAT)performed on the
[employer] platform.
Imaging:
09/18/2025 CXR (2 view): mild blunting of the posterior costophrenic angles bilaterally. No overt infiltrates.
09/18/2025 CT abdomen/pelvis without contrast: urinary bladder is significantly distended and lobulated with an estimated volume of 1380 cc. Slight stranding of the fat surrounding the urinary bladder suggesting the possibility of cystitis. There
is a 2.3 cm cyst arising in the lateral aspect of the left mid kidney. He is status post right nephrectomy. Prostate gland is enlarged and extends into the base of the bladder. Please see full dictation for additional detail. Film personally
viewed.
[2025-09-21] MEDS: LASIX 20 MG PO (16:07)
--- NOTE | 2025-09-21 16:56 | CM ---
PT and OT rec HH. Will check to see if patient want [facility] for new CHF assessment and education
Plan: DC to home no needs vs with [facility] for CHF
[2025-09-21] MEDS: TYLENOL 650 MG PO (18:00)
[2025-09-21] MEDS: DUONEB 3 ML INH (19:29)
[2025-09-21] MEDS: TOPROL XL PO (19:55)
[2025-09-21] MEDS: PACERONE PO (19:56)
--- NOTE | 2025-09-21 21:09 | W.PN.UPDATE ---
Update Note
Progress Note Update
Patient hypotensive 84/50, HR 85. Cardizem gtt previously lowered to 5, now turned off. Patient hr irreg, lungs clear. Patient stated he did feel dizzy but that is improving.
Ordered NSS 250 mg bolus, repeat BP 121/72, HR 101.
--- NOTE | 2025-09-21 21:30 | PTCARENOTE ---
at 1930 pt BP 87/60, HR 80-90s. manual BP done 68/42. pt asymptomatic, denies dizziness and lightheadedness. pt on cardizem drip at 10 ml/hr. COMMISSIONER OF INTERNAL REVENUE at bedside, cardizem decreased to 5 ml/hr per COMMISSIONER OF INTERNAL REVENUE order. metoprolol 50 mg and amiodarone 400 mg not
given per COMMISSIONER OF INTERNAL REVENUE order. pt BP 101/53, pt offers no current complaints. At 20:50 pt c/o lightheadedness, BP 79/53 HR 90s. COMMISSIONER OF INTERNAL REVENUE at bedside, cardizem put on hold per COMMISSIONER OF INTERNAL REVENUE order and 250 NSS bolus ordered and administered. BP 100-90s/60-70s HR 80-90s, pt
now denies dizziness and lightheadedness. no new orders at this time. plan of care ongoing.
[2025-09-21] MEDS: NSS 250 IV (22:33)
[2025-09-22] VITALS (8 sets, daily range): BP systolic 95–124; BP diastolic 62–73; BMI 31.4
[2025-09-22] MEDS: HEPARIN 5000 UNITS SC ×2 (01:10→07:56)
[2025-09-22] MEDS: SYNTHROID 25 MCG PO (05:34)
[2025-09-22] MEDS: PULMICORT 0.5 MG INH ×2 (07:38→19:58)
[2025-09-22] MEDS: DUONEB 3 ML INH (07:40)
[2025-09-22] MEDS: PACERONE 400 MG PO ×3 (07:55→21:13)
[2025-09-22] MEDS: TOPROL XL 50 MG PO ×2 (07:55→20:45)
[2025-09-22] MEDS: PROSCAR 5 MG PO (07:56)
[2025-09-22] MEDS: LASIX 20 MG PO (07:56)
[2025-09-22] MEDS: CIPRO 500 MG PO ×2 (07:56→20:45)
[2025-09-22] MEDS: TYLENOL 650 MG PO (07:57)
[2025-09-22] MEDS: MIRALAX 17 GRAMS PO (07:57)
[2025-09-22] MEDS: ANESTHETIC LOZENGE 1 LOZENGE PO ×3 (08:21→20:45)
[2025-09-22] MEDS: ROBITUSSIN DM 10 ML PO (08:21)
[2025-09-22] MEDS: TESSALON PERLES 100 MG PO ×3 (10:14→21:13)
--- NOTE | 2025-09-22 10:22 | W.PN.HOSP.TC ---
Today's Communication/Plan
-
.
Assessment / Plan
Assessment / Plan
Physical Exam
General: Well Developed, Well Nourished, No Apparent Distress, Comfortable and Conversant
HEENT: NormoCephalic, PERRLA, Nose Appears Normal and Ears Appear Normal
Respiratory: Clear and Non Labored Respirations
Cardiac: S1/S2 and Regular Rhythm; No Murmur or Peripheral Edema
GI: Soft, Non Tender, Non Distended and Normal Bowel Sounds
Genito-urinary: Clear Urine, No costovertebral tender and Phillips if off
Musculoskeletal: No Clubbing, No Cyanosis and No Edema
Skin: Warm
Neuro: Awake and AO x 3
Psych: Calm and Intact Judgment/Insight
# Paroxysmal AF alternating with atrial tachycardia, new diagnosis of unclear duration
ECHO 09/20/25: EF 43%, mildly dilated RV with normal systolic function, mild aortic regurgitation, mild to moderate M
[id number] 2 (age, HF). Started on IV heparin gtt, if no hematuria, then change to Xarelto.
Newly diagnosed CMP, could be tachycardia induced Vs others. Plan to f/w cardiology for further work-up
on Toprol
Could not tolerate CCB due to hypotension
Started on Amiodarone
Unable to tolerate further meds for GDMT due to hypotension.
Appreciate cardiology help
#sepsis 2/2 urinary tract infection. Resolved.
patient treated with Macrobid and Bactrim outpatient and treatment failed
Urine and blood culture no growth
Suspect we will have low sensitivity culture due to prior use of antibiotics
s/p IV cefepime, changed to Cipro
Outpatient cultures reviewed, with noted growth of Morganella morganii, sensitive to fluoroquinolones.
Appreciate ID help
# TME
Resolved.
Non focal
# Asthma with mild acute exacerbation
d/w Pulmonary,
on Inhalation therapy, starting Prednisone.
Cough medicine with Robitussin & Tessalon
Appreciate pulmonary help
#acute urinary retention likely 2/2 UTI with prior history of retention. History of BPH. Patient follows with [facility]. He is under close observation and has upcoming appointment. We did voiding trial 09/21 but failed.
We may try another voiding trial after achieving a good control of HR and more ambulatory but he is likely going to be dc with Phillips, he will f/w his urologist at [facility].
#acute kidney injury
Resolved
#BPH
- continue finasteride and tadalafil
# Hyponatremia, no confusion, lucid
# Nonischemic myocardial injury secondary to sepsis
No chest pain.
Nuclear stress test in 2023 was low probability for CAD
EKG, no ischemic change
#constipation
patient unsure of last BM
- daily Miralax
#hypothyroidism
- continue levothyroxine
TSH is normal
#renal cell carcinoma
s/p nephrectomy 2015
Followed with [facility] (no chemo and no radiation)
Code status: full code
DVT prophylaxis: heparin IV
Total time spent to see the patient, examine the patient, review data and lab results, discuss treatment plan with patient, family, consultants, nursing staff around 55 minutes
Anticipated Discharge: > 48 hours
Subjective/Interval History
-
Date of Service: September 22, 2025
Less sob
Still cough at times
No chest pain
Objective Data
-
Vital Signs:
Vital Signs
Temp Pulse Resp BP Pulse Ox
99.3 F 105 16 101/71 97
09/22/25 07:20 09/22/25 07:55 09/22/25 07:41 09/22/25 07:55 09/22/25 07:41
I&O
09/21/25 09/22/25 09/23/25
06:59 06:59 06:59
Intake Total 960 / 960 970 / 970
Output Total 3250 / 3250 3975 / 3975
Balance -2290 / -2290 -3005 / -3005
--- NOTE | 2025-09-22 10:23 | W.PN.CARDCBS ---
Addendum entered and electronically signed by MARE Benson 09/22/25 16:07:
ordered repeat EKG in am with amio loading
Addendum entered and electronically signed by Bubba Rdz DO 09/22/25 11:38:
I saw and examined the patient.
The Photographic Developer And Printer's note was reviewed and I agree with the note.
Comment:
Plan:
No further hematuria.
With paroxysmal atrial fibrillation, reviewed stroke prophylaxis and family was agreeable to starting IV heparin anticoagulation. If he tolerates this eventual transition to Xarelto. There was a family member that had issues with Eliquis in the
past.
Continue rate control strategy for now in the setting of urosepsis and hematuria with eventual consideration for rhythm control as an outpatient if he fails to convert on his own. He was not enthusiastic about consideration for JOVANI/cardioversion.
Echo reviewed. EF is slightly reduced. This may be secondary to rate related tach induced cardiomyopathy. He could be considered for outpatient ischemic evaluation
Continue supportive care with regards to urosepsis.
Discussed with patient and family
Original Note:
Today's Communication / Plan
-
start anticoag-heparin and observe for recurrent hematuria prior to starting OAC
cont rate control afib
Impression / Plan
-
PCP: Lena Shay
Primary roll coating machine operator: Tova Trotter MD
Impression:
Fever
Urosepsis
EBENEZER, resolved
Elevated troponin
Chest pain
Paroxysmal AF vs Atach, new diagnosis of unclear duration
acute noncardiogenic pulmonary edema
Hyperlipidemia
Renal cell cancer of right kidney
Right nephrectomy
BPH
CM, EF 43% by echo 09/20/2025
Mild to moderate MR
Previous cardiovascular testing:
Lexiscan nuclear stress test 11/13/2023: Normal perfusion
ECHO 09/20/25: EF 43%, mildly dilated RV with normal systolic function, mild aortic regurgitation, mild to moderate MR
Plan:
-Patient presented with fever and is being treated for urosepsis per primary service. Continue antibiotic therapy. Pt symptomatically improved.
-Cardiology following patient for newly diagnosed atrial tachycardia seen starting 09/19/2025. Pt then with Afib, confirmed by EKG 09/21/2025. In review of telemetry, likely in persistent atrial fibrillation since about 0230 on 09/21/2025. Atrial
arrhythmias are new diagnosis this admission.
-started Cardizem gtt 09/21 for rate control but stopped overnight due to hypotension
-started Amiodarone 400 mg tid 09/21 for rate control, has rec'd 2 doses as of 09/22/2025 0900, dose held 09/21 pm due to hypotension. Repeat EKG today to reassess QTc on Amio. QTc prior to starting Amio was 459 msec.
-Toprol uptitrated to 50 mg bid 09/21. PM dose on 09/21 held for hypotension
-telemetry personally reviewed Afib 100s, bursts to 150s
-EF 43% on echo 09/2025, eventual ischemic workup for new LV dysfunction. EF was previously preserved during stress test 11/2023. Pt currently denies CP but reports he has had intermittant pain over the past several months. No WMA on echo.
Troponin peaked at 0.861.
-On 09/21/2025, we discussed with daughter, , and pt the pathophysiology of atrial arrhythmias and discussed different atrial arrhythmias including atrial tachycardia, fibrillation and flutter. We talked about OAC and rate control versus rhythm
control therapy.
-Patient has Phillips catheter in place for urinary retention and there is a history of renal cell carcinoma and previous right nephrectomy and current sepsis admission thought to be related to UTI. Patient had 2+ blood on UA on admission, but no
chiik hematuria at present.
-no history of bleeding prior to UTI.
-reviewed case including management of afib with pt, , and daughter at bedside
-start anticoagulation. [id number] 2 (age, HF). 's mother from Eliquis (spontaneous brain bleed age 90s) so they do not want Eliquis. Creat WNL. Consider start with IV heparin then transition to OAC if he tolerates without bleeding
-if he remains in afib, eventual JOVANI/CV or CV after 1 month anticoagulation in outpt setting
-New to Toprol-XL 50 mg BID this admission-continue
-Unable to add AIDE/ARB/aldosterone antagonist due to hypotension, BP 96/69 with high dose AV laura blockers for rate control
discussed with pt, , daughter at bedside, questions answered
Progress Note - Automotive Design Drafter
Subjective
Date of Service: September 22, 2025
feels better in terms of UTI
walked in hallway
HRs remain elevated in afib, bursts to 150s, 100bpm at rest
Had hypotension last night-cardizem gtt stopped and Metoprolol and Amio held
Objective
Labs:
09/20/25 07:33
09/21/25 09:42
Labs
Hgb 11.0 g/dL (13.0-18.0) L 09/20/25 07:33
Hct 33.6 % (39.0-52.0) L 09/20/25 07:33
Plt Count 251 10^3/uL (130-400) D 09/20/25 07:33
Sodium 128 mmol/L (135-145) L 09/21/25 09:42
Potassium 4.2 mmol/L (3.5-5.1) 09/21/25 09:42
BUN 15 mg/dl (9-20) 09/21/25 09:42
Creatinine 0.9 mg/dL (0.7-1.3) 09/21/25 09:42
Glucose 117 mg/dl (70-99) H 09/21/25 09:42
Troponins
09/19/25 09/19/25 09/19/25
11:18 13:06 18:00
Troponin I 0.861 H* 0.791 H* Cancelled
Vital Signs and I&O:
Vital Signs
Temp Pulse Resp BP Pulse Ox
99.3 F 105 16 101/71 97
09/22/25 07:20 09/22/25 07:55 09/22/25 07:41 09/22/25 07:55 09/22/25 07:41
Vital Signs
Temp Pulse Resp BP Pulse Ox
99.3 F 105 16 101/71 97
09/22/25 07:20 09/22/25 07:55 09/22/25 07:41 09/22/25 07:55 09/22/25 07:41
Intake & Output
09/20/25 09/21/25 09/22/25 09/23/25
06:59 06:59 06:59 06:59
Intake Total 3230 / 3230 960 / 960 970 / 970
Output Total 1725 / 1725 3250 / 3250 3975 / 3975
Balance 1505 / 1505 -2290 / -2290 -3005 / -3005
Physical Exam
Physical Exam
GEN: No distress, awake, Ox3
HEENT: supple, anicteric, mmm
LUNGS: CTA, no wheezes/rales
CV: Tachy, irreg, irreg, no murmur
ABD: soft, BS+, NT/ND
EXT: No edema
NEURO: Gross non-focal
SKIN: No rash
--- NOTE | 2025-09-22 10:53 | CM ---
Met with pt and at bedside. They are both open to having [facility] and are not interested in other agencies. Pt has new onset CHF, and PT rec HH. [facility] liaison made aware.
Plan: home with [facility]
[2025-09-22] MEDS: DELTASONE 40 MG PO (11:30)
[2025-09-22 11:47] LABS: Hematocrit 34.4 % (39.0-52.0); Hemoglobin 11.5 g/dL (13.0-18.0); Mean Corp Hgb Conc. 33.4 g/dL (33.0-37.0); Mean Corpuscular Volume 93.7 fL (80.0-94.0); Platelet Count 344 10^3/uL (130-400); Red Cell Dist. Width 12.8 % (11.5-14.5)
[2025-09-22 12:08] LABS: APTT 34.7 Sec (23.4-35.0)
[2025-09-22] MEDS: HEPARIN 25000 UNITS/250 ML IV (12:38)
--- NOTE | 2025-09-22 12:49 | VNURNOTE ---
Home Health Liaison met with patient and family at bedside to discuss [facility] nurse/therapy, visits, schedule and homebound status. All are agreeable and understand that visits at home will be 2-3 x per week to assess and teach medical management.
All are aware that [facility] will contact them for start of care within a week after discharge from . Provided contact number for [facility].
[facility] referral completed in [facility].
--- NOTE | 2025-09-22 13:46 | W.PN.ID1 ---
Date of Service
Date of Service: September 22, 2025
Today's Communication
Continue current course of ciprofloxacin. See below�
Assessment / Plan
Complicated urinary tract infection secondary to Morganella morganii
Leukocytosis
Fever
EBENEZER; improved
Urinary retention
BPH
Hx renal cell carcinoma
Hypothyroidism
Asthma
Recommendations:
Outpatient cultures with Morganella morganii, sensitivities as below.
Continue ciprofloxacin (day #5 antibiotics) to complete a 10-day course in total.
Monitor white count and temperature curve.
Chart reviewed, and patient now with acute HFmrEF, LVEF 43%. Pulmonary and Cardiology following.
����������������������������������������������������������
Chief Complaint
-: UTI
Subjective / Review of Systems
Patient seen and examined. Reports need for reinsertion of Phillips catheter secondary to retention. Otherwise feels overall improved.
Review of Systems: No Fever and No Chills
Vital Signs / Physical Exam
Vital Signs
Vital Signs
Temp Pulse Resp BP Pulse Ox
98.5 F 107 18 95/62 96
09/22/25 11:14 09/22/25 11:14 09/22/25 11:14 09/22/25 11:14 09/22/25 11:41
Physical Exam
Constitutional: No Acute Distress, Comfortable and Non-toxic
Cardiovascular: S1/S2; Negative S3/S4
Pulmonary: Non Labored
Gastrointestinal: Soft, Non Tender and Non Distended
Genito-Urinary: Phillips and Clear Urine
Extremities: Edema; Negative Cyanosis or Erythema
Neurological: Awake and Alert
Psychological: Calm
Objective Data
Lab Data
Lab Results
09/22/25 11:26
09/21/25 09:42
APTT 34.7 Sec (23.4-35.0) 09/22/25 11:26
Estimated Creat Clear 80 ml/min 09/21/25 09:42
Lactic Acid 1.1 mmol/L (0.7-2.0) 09/18/25 20:16
Total Bilirubin 0.6 mg/dl (0.2-1.3) 09/18/25 20:16
AST 34 U/L (17-59) 09/18/25 20:16
ALT 32 U/L (0-50) 09/18/25 20:16
Alkaline Phosphatase 79 U/L (38-126) 09/18/25 20:16
Most recent labs reviewed.
Micro Results:
09/19/25 11:18 Blood Culture - Preliminary
Blood/Venous No Growth in 72 hours- Final report to follow
09/18/25 20:17 Urine Culture - Final
Urine NO GROWTH
09/18/25 20:16 Influenza Types A & B (MORGAN) - Final
Nasal Swab Negative for Influenza A & B, NAAT
Negative results must be combined with clinical observations
and patient history.
Nucleic Acid Amplification test (NAAT)performed on the
[employer] platform.
Imaging:
09/20/2025 ECHO (TTE): mildly reduced LV ejection fraction; approximately 43%. Mildly dilated right ventricle. Moderate mitral valve regurgitation. Please see full dictation for additional detail.
09/18/2025 CXR (2 view): mild blunting of the posterior costophrenic angles bilaterally. No overt infiltrates.
09/18/2025 CT abdomen/pelvis without contrast: urinary bladder is significantly distended and lobulated with an estimated volume of 1380 cc. Slight stranding of the fat surrounding the urinary bladder suggesting the possibility of cystitis. There
is a 2.3 cm cyst arising in the lateral aspect of the left mid kidney. He is status post right nephrectomy. Prostate gland is enlarged and extends into the base of the bladder. Please see full dictation for additional detail. Film personally
viewed.
Chest X-Ray: Image Reviewed and Report Reviewed
Echocardiogram: Report Reviewed
[2025-09-22] MEDS: ATROVENT NEBULES INH (13:54)
[2025-09-22] MEDS: ATROVENT NEBULES 0.5 MG INH ×2 (13:54→19:59)
--- NOTE | 2025-09-22 14:00 | W.PN.PUL3 ---
Today's Communication / Plan
-
- Prednisone 40 mg daily
- Continue DuoNeb, add ipratropium nebulized 4 times daily
Assessment
-
Patient is a very pleasant 75-year-old gentleman with history of renal cell carcinoma status post nephrectomy with solitary kidney, BPH who presented to the emergency room with fever. Also patient had lower urinary tract symptoms. He was having
difficulty emptying bladder. Patient had been treated with antibiotic as outpatient for suspected UTI without improvement. Initially he was treated with Macrobid, subsequently changed to Bactrim. In view of ongoing chills he was brought to the
emergency room and noted to have sepsis with complicated UTI. Patient also noted to have urinary retention and had a Phillips catheter placed in the emergency room. IV fluid resuscitation was started in addition to broad-spectrum antibiotic. 09/20,
in the morning patient developed mild shortness of breath which improved after he sat up coughed some clear expectoration and subsequently received Pulmicort nebulized solution. Patient reportedly has history of mild intermittent asthma with rare
use of albuterol. Reported 1 episode of mild flare after an upper respite tract symptoms in the last 2 years, last use of prednisone and albuterol was about 3 weeks ago. Patient also reports of frequent symptoms suggestive of chronic allergic
rhinitis and has rare symptoms of gastroesophageal reflux disease. Patient does report URI symptoms particularly in high pollen load time which responded well to [id number] antihistamines. Never been intubated or required BiPAP for his
asthma. Patient does not recall having had a pulmonary function testing in the past or follow-up with pulmonary clinic. In view of respiratory symptoms, pulmonary consultation was requested for further input.
#1. 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
- Suspect volume overload as primary etiology, with new diagnosis of HFmrEF
- Elevated BNP noted on admission, as well as trace pleural effusions, which appeared slightly enlarged with IVF resuscitation in f/u imaging
- 09/20, stopped IVF, Lasix 20 mg IV x 1 stat given with good diuresis.
- ECHO suggestive of decreased EF, 43%. Bilateral effusions are trace, too small for safe thoracentesis.
- Influenza A, B, COVID-19 screen negative. Blood cultures and urine culture pending. Has been on cefepime for UTI
- Continue Lasix 20 mg daily, PO. f/u CXR improving
#2. Mild intermittent asthma with acute exacerbation
- 09/22, end expiratory wheezing noted along with rubber thread spooler increased coughing. Patient also goes into coughing fit with deep inspiration. Exacerbation of hyperreactive airway disease.
- Recently started on Pulmicort BID and PRN Albuterol, continue for now
-Start prednisone 40 mg daily, scheduled ipratropium 4 times daily. Will hold off albuterol for now in view of intermittent tachycardia.
- Historically rare use of Albuterol, 1 flare in last 2 years, required short course of steroids and albuterol about 3 weeks ago after URI
- Recommend out patient follow up with [facility], information added to the d/c section
- Eosinophil count 200. Will check IgE, RAST panel and PFTs as out patient. Reported h/o perennial Allergic rhinitis and rare GERD symptoms.
Other medical diagnosis:
- Sepsis with Complicated UTI, currently on cefepime, infectious disease service on case
- History of renal cell cancer, s/p nephrectomy, has solitary kidney, Phillips catheter currently in place
- BPH with urinary retention. Phillips in place.
- Hypothyroidism
- Elevated troponin with paroxysmal A-fib versus atrial tachycardia. Workup in progress, cardiology service on case, continue telemetry. Currently on Amiodarone, Metoprolol and Cardizem infusion.
- EBENEZER, obstructive uropathy as well as sepsis with UTI. Status post IV fluid resuscitation. Hold additional IV fluids, monitor labs.
Total time spent on this consultation/encounter _48___ minutes which includes review of history, physical exam, medications, laboratory data, personal review of imaging, extensive review of outpatient records, discussion with care team and
respiratory therapy.
Updated family at bedside
Data:
CXR 09/2025: Mild blunting of the posterior costophrenic angles bilaterally. Correlating with earlier CT of the abdomen and pelvis obtained this same date, there is amount of pleural fluid bilaterally as well as mild basilar atelectasis.
CT A/P 09/2025: The urinary bladder is significantly distended and lobulated, estimated volume of 1380 cc. Slight stranding of the fat surrounding the urinary bladder, suggesting the possibility of cystitis. 2.3 cm cyst arising in the lateral aspect
of the left mid kidney. No other focal abnormality of the left kidney.
Status post right nephrectomy.
Prostate gland is enlarged, extending into the base of the bladder.
Trace amount of pleural fluid within the posterior lower chest bilaterally.
Fatty infiltration the liver.
Bony degenerative changes as described.
Lexiscan 11/2023: Normal perfusion imaging
Subjective Data
-
Date of Service:
Date of Service: September 22, 2025
Subjective:
Comfortably lying in bed, reports increased chest tightness and coughing. Had episode of wheezing rubber thread spooler.
Review of Systems
Genitourinary: Other (All 14 systems reviewed and negative except as stated above in the history of present illness.)
Objective Data
Data Reviewed
Vital Signs / I&O / Oxygen:
Vital Signs
Temp Pulse Resp BP Pulse Ox
98.5 F 117 18 95/62 96
09/22/25 11:14 09/22/25 13:56 09/22/25 13:56 09/22/25 11:14 09/22/25 13:56
Intake and Output
09/21/25 09/22/25 09/23/25
06:59 06:59 06:59
Intake Total 960 / 960 970 / 970
Output Total 3250 / 3250 3975 / 3975
Balance -2290 / -2290 -3005 / -3005
SaO2 96
Physical Exam
General: Comfortable
HEENT: Normocephalic
Cardiovascular: S1-S2 and Peripheral Edema (No pedal edema on exam)
Respiratory: Wheeze (Mild end expiratory wheezing noted. Patient goes into coughing fit with deep inspiration.)
GI: Soft and Non Distended
Neurology: Awake and Alert
Skin: Warm
Labs/Micro/Reports
Lab Data
09/22/25 11:26
09/21/25 09:42
Laboratory Results
09/22/25
11:26
APTT 34.7
Microbiology
09/19/25 11:18 Blood/Venous Blood Culture - Preliminary
No Growth in 72 hours- Final report to follow
09/18/25 20:17 Urine Urine Culture - Final
NO GROWTH
[2025-09-22 19:32] LABS: APTT 48.1 Sec (23.4-35.0)
[2025-09-23] VITALS (8 sets, daily range): BP systolic 91–110; BP diastolic 60–75; PULSE 95; O2SAT 95–96; BMI 31.2
[2025-09-23] MEDS: ROBITUSSIN DM 10 ML PO ×3 (01:12→22:02)
[2025-09-23] MEDS: TYLENOL 650 MG PO (01:16)
[2025-09-23 03:38] LABS: APTT 51.8 Sec (23.4-35.0)
[2025-09-23] MEDS: ATROVENT NEBULES 0.5 MG INH ×3 (03:47→22:32)
[2025-09-23] MEDS: SYNTHROID 25 MCG PO (05:48)
[2025-09-23] MEDS: PULMICORT 0.5 MG INH (07:24)
[2025-09-23] MEDS: ANESTHETIC LOZENGE 1 LOZENGE PO ×2 (08:30→19:55)
[2025-09-23] MEDS: HEPARIN 25000 UNITS/250 ML IV (08:31)
[2025-09-23] MEDS: MIRALAX 17 GRAMS PO (08:33)
[2025-09-23] MEDS: PROSCAR 5 MG PO (08:33)
[2025-09-23] MEDS: TESSALON PERLES 100 MG PO ×3 (08:33→23:39)
[2025-09-23] MEDS: CIPRO 500 MG PO ×2 (08:34→19:55)
[2025-09-23] MEDS: PACERONE 400 MG PO ×3 (08:34→23:56)
[2025-09-23] MEDS: DELTASONE 40 MG PO (08:35)
[2025-09-23] MEDS: LASIX 20 MG PO (08:35)
[2025-09-23] MEDS: TOPROL XL 50 MG PO (08:36)
[2025-09-23] MEDS: SENOKOT 17.2 MG PO (09:33)
[2025-09-23 10:45] LABS: APTT 80.0 Sec (23.4-35.0)
--- NOTE | 2025-09-23 10:58 | W.PN.HOSP.TC ---
Today's Communication/Plan
-
F/w Cardiology recommendations. If no cardioversion, then discharge over the weekend with home care. Agree to transition to oral anticoagulation. Will follow about Co-Pay
Assessment / Plan
Assessment / Plan
Physical Exam
General: Well Developed, Well Nourished, No Apparent Distress, Comfortable and Conversant
HEENT: NormoCephalic, PERRLA, Nose Appears Normal and Ears Appear Normal
Respiratory: Clear and Non Labored Respirations
Cardiac: S1/S2 and Regular Rhythm; No Murmur or Peripheral Edema
GI: Soft, Non Tender, Non Distended and Normal Bowel Sounds
Genito-urinary: Clear Urine, No costovertebral tender and Phillips if off
Musculoskeletal: No Clubbing, No Cyanosis and No Edema
Skin: Warm
Neuro: Awake and AO x 3
Psych: Calm and Intact Judgment/Insight
# Paroxysmal AF alternating with atrial tachycardia, new diagnosis of unclear duration
ECHO 09/20/25: EF 43%, mildly dilated RV with normal systolic function, mild aortic regurgitation, mild to moderate M
[id number] 2 (age, HF). Started on IV heparin gtt, if no hematuria, then change to Xarelto.
Newly diagnosed CMP, could be tachycardia induced Vs others. Plan to f/w cardiology for further work-up
on Toprol
Could not tolerate CCB due to hypotension
Started on Amiodarone
Unable to tolerate further meds for GDMT due to hypotension.
Appreciate cardiology help
#sepsis 2/2 urinary tract infection. Resolved.
patient treated with Macrobid and Bactrim outpatient and treatment failed
Urine and blood culture no growth
Suspect we will have low sensitivity culture due to prior use of antibiotics
s/p IV cefepime, changed to Cipro
Outpatient cultures reviewed, with noted growth of Morganella morganii, sensitive to fluoroquinolones.
Appreciate ID help
# TME
Resolved.
Non focal
# Asthma with mild acute exacerbation
d/w Pulmonary,
on Inhalation therapy, starting Prednisone.
Cough medicine with Robitussin & Tessalon
Appreciate pulmonary help
#acute urinary retention likely 2/2 UTI with prior history of retention. History of BPH. Patient follows with [facility]. He is under close observation and has upcoming appointment. We did voiding trial 09/21 but failed.
We may try another voiding trial after achieving a good control of HR and more ambulatory but he is likely going to be dc with Phillips, he will f/w his urologist at [facility].
Per ID: Oral ciprofloxacin to complete a 10-day course in total.
#acute kidney injury
Resolved
#BPH
- continue finasteride and tadalafil
# Hyponatremia, no confusion, lucid
# Nonischemic myocardial injury secondary to sepsis
No chest pain.
Nuclear stress test in 2023 was low probability for CAD
EKG, no ischemic change
#constipation
patient unsure of last BM
- daily Miralax
Given Senakot
#hypothyroidism
- continue levothyroxine
TSH is normal
#renal cell carcinoma
s/p nephrectomy 2015
Followed with [facility] (no chemo and no radiation)
Code status: full code
DVT prophylaxis: heparin IV
Total time spent to see the patient, examine the patient, review data and lab results, discuss treatment plan with patient, family, consultants, nursing staff around 55 minutes
Anticipated Discharge: 24 - 48 hours
Subjective/Interval History
-
Date of Service: September 23, 2025
He feels better
No sob
Objective Data
-
Labs:
Laboratory Results
09/23/25 09/23/25 09/23/25
02:55 10:09 16:55
APTT 51.8 H 80.0 H Pending
Sodium Pending
Potassium Pending
Chloride Pending
Carbon Dioxide Pending
BUN Pending
Creatinine Pending
Glucose Pending
Calcium Pending
Vital Signs:
Vital Signs
Temp Pulse Resp BP Pulse Ox
97.9 F 100 18 110/74 96
09/23/25 07:30 09/23/25 08:35 09/23/25 07:30 09/23/25 08:36 09/23/25 08:20
I&O
09/22/25 09/23/25 09/24/25
06:59 06:59 06:59
Intake Total 970 / 970 1080 / 1080
Output Total 3975 / 3975 2049
Balance -3005 / -3005 -970 / -970
--- NOTE | 2025-09-23 11:06 | W.PN.PUL3 ---
Today's Communication / Plan
-
- DC budesonide, initiate Symbicort 2 puffs twice a day scheduled, should continue at discharge
- Prednisone 40 mg daily for 3 days then 30 mg daily for 3 days then 20 mg daily for 3 days then 10 mg daily for 3 days then stop taking
- Outpatient follow-up with [facility] pulmonary clinic for further management
- Pulmonary team will sign off, please call as needed
Assessment
-
Patient is a very pleasant 75-year-old gentleman with history of renal cell carcinoma status post nephrectomy with solitary kidney, BPH who presented to the emergency room with fever. Also patient had lower urinary tract symptoms. He was having
difficulty emptying bladder. Patient had been treated with antibiotic as outpatient for suspected UTI without improvement. Initially he was treated with Macrobid, subsequently changed to Bactrim. In view of ongoing chills he was brought to the
emergency room and noted to have sepsis with complicated UTI. Patient also noted to have urinary retention and had a Phillips catheter placed in the emergency room. IV fluid resuscitation was started in addition to broad-spectrum antibiotic. 09/20,
in the morning patient developed mild shortness of breath which improved after he sat up coughed some clear expectoration and subsequently received Pulmicort nebulized solution. Patient reportedly has history of mild intermittent asthma with rare
use of albuterol. Reported 1 episode of mild flare after an upper respite tract symptoms in the last 2 years, last use of prednisone and albuterol was about 3 weeks ago. Patient also reports of frequent symptoms suggestive of chronic allergic
rhinitis and has rare symptoms of gastroesophageal reflux disease. Patient does report URI symptoms particularly in high pollen load time which responded well to [id number] antihistamines. Never been intubated or required BiPAP for his
asthma. Patient does not recall having had a pulmonary function testing in the past or follow-up with pulmonary clinic. In view of respiratory symptoms, pulmonary consultation was requested for further input.
#1. 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
- Suspect volume overload as primary etiology, with new diagnosis of HFmrEF
- Elevated BNP noted on admission, as well as trace pleural effusions, which appeared slightly enlarged with IVF resuscitation in f/u imaging
- 09/20, stopped IVF, Lasix 20 mg IV x 1 stat given with good diuresis.
- ECHO suggestive of decreased EF, 43%. Bilateral effusions are trace, too small for safe thoracentesis.
- Influenza A, B, COVID-19 screen negative. Blood cultures and urine culture pending. Has been on cefepime for UTI
- Continue Lasix 20 mg daily, PO. f/u CXR improved
- Tolerating p.o. Lasix well
#2. Mild intermittent asthma with acute exacerbation
- 09/22, end expiratory wheezing noted along with economic forecaster increased coughing. Patient also goes into coughing fit with deep inspiration. Exacerbation of hyperreactive airway disease.
- Recently started on Pulmicort BID and PRN Albuterol, continue for now
- 09/22, Started prednisone 40 mg daily, scheduled ipratropium 4 times daily. Will hold off albuterol for now in view of intermittent tachycardia.
- Historically rare use of Albuterol, 1 flare in last 2 years, required short course of steroids and albuterol about 3 weeks ago after URI
- Recommend out patient follow up with [facility] clinic, information added to the d/c section
- Eosinophil count 200. Will check IgE, RAST panel and PFTs as out patient. Reported h/o perennial Allergic rhinitis and rare GERD symptoms.
- 09/23, clinically improved. Switch to Symbicort BID, should be discharged in this inhaler along with prednisone taper.
Other medical diagnosis:
- Sepsis with Complicated UTI, currently on cefepime, infectious disease service on case
- History of renal cell cancer, s/p nephrectomy, has solitary kidney, Phillips catheter currently in place
- BPH with urinary retention. Phillips in place.
- Hypothyroidism
- Elevated troponin with paroxysmal A-fib versus atrial tachycardia. Workup in progress, cardiology service on case, continue telemetry. Currently on Amiodarone, Metoprolol and Cardizem infusion.
- EBENEZER, obstructive uropathy as well as sepsis with UTI. Status post IV fluid resuscitation. Hold additional IV fluids, monitor labs.
Total time spent on this consultation/encounter _45___ minutes which includes review of history, physical exam, medications, laboratory data, personal review of imaging, extensive review of outpatient records, discussion with care team and
respiratory therapy.
Updated family at bedside
Data:
CXR 09/2025: Mild blunting of the posterior costophrenic angles bilaterally. Correlating with earlier CT of the abdomen and pelvis obtained this same date, there is amount of pleural fluid bilaterally as well as mild basilar atelectasis.
CT A/P 09/2025: The urinary bladder is significantly distended and lobulated, estimated volume of 1380 cc. Slight stranding of the fat surrounding the urinary bladder, suggesting the possibility of cystitis. 2.3 cm cyst arising in the lateral aspect
of the left mid kidney. No other focal abnormality of the left kidney.
Status post right nephrectomy.
Prostate gland is enlarged, extending into the base of the bladder.
Trace amount of pleural fluid within the posterior lower chest bilaterally.
Fatty infiltration the liver.
Bony degenerative changes as described.
Lexiscan 11/2023: Normal perfusion imaging
Subjective Data
-
Date of Service:
Date of Service: September 23, 2025
Subjective:
Patient comfortably lying in bed in no acute distress. Clinically doing better.
Review of Systems
Genitourinary: Other (All 14 systems reviewed and negative except as stated above in the history of present illness.)
Objective Data
Data Reviewed
Vital Signs / I&O / Oxygen:
Vital Signs
Temp Pulse Resp BP Pulse Ox
97.9 F 100 18 110/74 96
09/23/25 07:30 09/23/25 08:35 09/23/25 07:30 09/23/25 08:36 09/23/25 08:20
Intake and Output
09/22/25 09/23/25 09/24/25
06:59 06:59 06:59
Intake Total 970 / 970 1080 / 1080
Output Total 3975 / 3975 2049
Balance -3005 / -3005 -970 / -970
SaO2 96
Physical Exam
General: Comfortable
HEENT: Normocephalic
Cardiovascular: S1-S2 and Peripheral Edema (No pedal edema on exam)
Respiratory: Wheeze (Wheezing resolved)
GI: Soft and Non Distended
Neurology: Awake and Alert
Skin: Warm
Labs/Micro/Reports
Lab Data
09/22/25 11:26
Laboratory Results
09/22/25 09/22/25 09/23/25
18:52 02:55
APTT 34.7 48.1 H 51.8 H
09/23/25
10:09
APTT 80.0 H
Microbiology
09/19/25 11:18 Blood/Venous Blood Culture - Preliminary
No Growth in 72 hours- Final report to follow
09/18/25 20:17 Urine Urine Culture - Final
NO GROWTH
[2025-09-23 11:22] LABS: Blood Urea Nitrogen 20 mg/dl (9-20); Calcium 9.1 mg/dl (8.4-10.2); Carbon Dioxide 24 mmol/L (22-30); Chloride 102 mmol/L (98-107); Estimated Creatinine Clearance 72 ml/min; Glucose 129 mg/dl (70-99); Potassium 4.2 mmol/L (3.5-5.1); Sodium 132 mmol/L (135-145); eGFR > 60.00
[2025-09-23] MEDS: SYMBICORT 160/4.5 MCG INHALER 2 PUFF INH ×2 (11:47→20:07)
--- NOTE | 2025-09-23 12:35 | W.PN.ID1 ---
Date of Service
Date of Service: September 23, 2025
Today's Communication
Continue current course of Cipro as below�
Assessment / Plan
Complicated urinary tract infection secondary to Morganella morganii
Leukocytosis
Fever
EBENEZER; improved
Urinary retention
BPH
Hx renal cell carcinoma
Hypothyroidism
Asthma
Recommendations:
Outpatient cultures with Morganella morganii, sensitivities as below.
Continue ciprofloxacin (day #6 antibiotics) to complete a 10-day course in total.
Monitor white count and temperature curve.
Chart reviewed, and patient now with acute HFmrEF, LVEF 43%. Pulmonary and Cardiology following.
Little more to offer from a Infectious diseases standpoint.
Will see again at your request.
����������������������������������������������������������
Chief Complaint
-: UTI
Subjective / Review of Systems
Review of Systems: No Fever and No Chills
Vital Signs / Physical Exam
Vital Signs
Vital Signs
Temp Pulse Resp BP Pulse Ox
98.6 F 117 18 94/61 93
09/23/25 11:29 09/23/25 11:29 09/23/25 11:29 09/23/25 11:29 09/23/25 11:29
Physical Exam
Constitutional: No Acute Distress, Comfortable and Non-toxic
Cardiovascular: S1/S2; Negative S3/S4
Pulmonary: Non Labored
Gastrointestinal: Soft, Non Tender and Non Distended
Genito-Urinary: Phillips and Clear Urine
Extremities: Edema; Negative Cyanosis or Erythema
Neurological: Awake and Alert
Psychological: Calm
Objective Data
Lab Data
Lab Results
09/22/25 11:26
09/23/25 10:09
APTT 80.0 Sec (23.4-35.0) H 09/23/25 10:09
Estimated Creat Clear 72 ml/min 09/23/25 10:09
Lactic Acid 1.1 mmol/L (0.7-2.0) 09/18/25 20:16
Total Bilirubin 0.6 mg/dl (0.2-1.3) 09/18/25 20:16
AST 34 U/L (17-59) 09/18/25 20:16
ALT 32 U/L (0-50) 09/18/25 20:16
Alkaline Phosphatase 79 U/L (38-126) 09/18/25 20:16
Most recent labs reviewed.
Micro Results:
09/19/25 11:18 Blood Culture - Preliminary
Blood/Venous No Growth in 4 days- Final report to follow
09/18/25 20:17 Urine Culture - Final
Urine NO GROWTH
09/18/25 20:16 Influenza Types A & B (MORGAN) - Final
Nasal Swab Negative for Influenza A & B, NAAT
Negative results must be combined with clinical observations
and patient history.
Nucleic Acid Amplification test (NAAT)performed on the
[employer] platform.
Imaging:
09/20/2025 ECHO (TTE): mildly reduced LV ejection fraction; approximately 43%. Mildly dilated right ventricle. Moderate mitral valve regurgitation. Please see full dictation for additional detail.
09/18/2025 CXR (2 view): mild blunting of the posterior costophrenic angles bilaterally. No overt infiltrates.
09/18/2025 CT abdomen/pelvis without contrast: urinary bladder is significantly distended and lobulated with an estimated volume of 1380 cc. Slight stranding of the fat surrounding the urinary bladder suggesting the possibility of cystitis. There
is a 2.3 cm cyst arising in the lateral aspect of the left mid kidney. He is status post right nephrectomy. Prostate gland is enlarged and extends into the base of the bladder. Please see full dictation for additional detail. Film personally
viewed.
--- NOTE | 2025-09-23 13:57 | CM ---
Addendum entered by Rosa Alvarenga 09/23/25 16:57:
Eliqis 5mg daily 30 days $295.10, 90 days mail order $492
Xarelto 20mg daily 30 days $433.60, 90 days mail order $690.40
Prices shared with and patient. They prefer the Eliqis. Coupon for eliqis given.
Original Note:
Reviewed chart. Possible cardioversion. If this is declined then pt may be discharged over the weekend with [facility]
Plan: DC Home with [facility]
--- NOTE | 2025-09-23 15:01 | W.PN.CARDCBS ---
Addendum entered and electronically signed by Teri Estrella DO 09/23/25 17:46:
I saw and examined the patient.
The Plug Making Operator's note was reviewed and I agree with the note.
Comment: Patient seen and examined with multiple family members at bedside. Offers no new complaints but we discussed arrhythmia plan, rate versus rhythm strategy and upcoming urologic appointment at [facility] with anticipated need
for future procedures.
General: No acute distress, AAOX3
Heart: Irregularly irregular. Positive S1-S2. / SM
Lungs: CTA b/l, negative wheezes/rales/rhonchi
Abd: Positive BS, NT/ND, neg rebound/rigidity/guarding
Ext: no edema
: Phillips
Neuro: nonfocal
Plan:
Newly diagnosed A-fib/AT 09/19/2025, persistent with continued rapid rates.
-Continue Toprol XL 50mg BID; further titration may be limited by blood pressure
-Started on amiodarone 400 mg TID 09/21/2025.
-Continue to follow on telemetry and monitor serial EKGs on amiodarone
-Currently on IV heparin drip which is being transition to Eliquis 5 mg twice daily
-TSH normal 2.85
- Patient has a history of urinary retention with prior renal cell carcinoma of the right kidney and right nephrectomy followed by [facility]. He currently has indwelling Phillips catheter and has an outpatient appointment with his
urologist at [place] on October 24. No surgery is planned at this moment. I have asked them to reach out to their [place] urologist to discuss his hospitalization and timing of any surgical procedures. It looks like nothing will happen
within the next month. We did discuss rhythm versus rate control strategy. As patient continues to have difficulty with rate control and has no upcoming procedures Urologist to discuss in the next month, we will consider a JOVANI/cardioversion next
week.
Heart failure with mildly reduced ejection fraction, 2D echocardiogram 09/20/2025 with EF 43%
-Etiology unclear, ischemic versus nonischemic/tachycardia mediated
-Abnormal cardiac troponins which peaked at 0.861.
-No chest pain or pressure.
- He has cardiac risk factors for coronary artery disease however abnormal troponins and mildly reduced ejection fraction may be related to tachycardia.
-He had a Lexiscan nuclear stress test 11/13/2023 which had normal myocardial perfusion and an EF of 64%.
- Will review symptoms over the weekend and make decision for early next week regarding ischemic evaluation
- From a heart failure perspective, initial proBNP was 2250 on September 19.
- Started on Lasix 20 mg once daily on 09/21/2025
- No significant weight loss.
- Goal-directed medical therapy limited by low blood pressure: Toprol XL, Lasix. Patient currently has a UTI but could consider SGLT2 inhibitor as an outpatient.
Sepsis with complicated UTI secondary to Morganella morganii
- ID consulted
- Continue antibiotics
Renal cell cancer of right kidney/Right nephrectomy-renal function normal. Monitor.
Original Note:
Today's Communication / Plan
-
Stop heparin drip
Start oral anticoagulation in form of Eliquis 5 mg twice a day
Continue on amiodarone 400 mg 3 times daily with eventual discharge on 200 mg twice a day
Continue Toprol for now. If blood pressure remains low could consider reducing but currently patient needs higher dose for rate control
Eventual JOVANI cardioversion which can be done as outpatient
Impression / Plan
-
PCP: Lena Shay
Primary meal temperer: Tova Trotter MD
Impression:
Fever
Urosepsis
EBENEZER, resolved
Elevated troponin
Chest pain
Paroxysmal AF vs Atach, new diagnosis of unclear duration
acute noncardiogenic pulmonary edema
Hyperlipidemia
Renal cell cancer of right kidney
Right nephrectomy
BPH
CM, EF 43% by echo 09/20/2025
Mild to moderate MR
Previous cardiovascular testing:
Lexiscan nuclear stress test 11/13/2023: Normal perfusion
ECHO 09/20/25: EF 43%, mildly dilated RV with normal systolic function, mild aortic regurgitation, mild to moderate MR
Plan:
-Patient presented 09/18/2025 with fever and is being treated for urosepsis per primary service. Continue antibiotic therapy. Pt symptomatically improved.
-Cardiology following patient for newly diagnosed atrial tachycardia seen starting 09/19/2025. Pt then with Afib, confirmed by EKG 09/21/2025. In review of telemetry, likely in persistent atrial fibrillation since about 0230 on 09/21/2025. Atrial
arrhythmias are new diagnosis this admission.
-TSH 2.85
-started Cardizem gtt 09/21 for rate control but stopped overnight due to hypotension
-started Amiodarone 400 mg tid 09/21 for rate control. EKG 09/23/2025 atrial fibrillation at 99 bpm with QTc 474 ms. QTc prior to starting Amio was 459 msec.
-Toprol uptitrated to 50 mg bid 09/21. PM dose on 09/21 held for hypotension.
-telemetry personally reviewed Afib 90's to 110s. Overall heart rate continues to improve with amiodarone load. Has received 2400 mg load as of 1500 on 09/23/2025.
-EF 43% on echo 09/2025, eventual ischemic workup for new LV dysfunction. EF was previously preserved during stress test 11/2023. Pt currently denies CP but reports he has had intermittent pain over the past several months. No WMA on echo.
Troponin peaked at 0.861.
-On 09/21/2025, we discussed with daughter, , and pt the pathophysiology of atrial arrhythmias and discussed different atrial arrhythmias including atrial tachycardia, fibrillation and flutter. We talked about OAC and rate control versus rhythm
control therapy.
-Patient and family agreeable to start start anticoagulation. [id number] 2 (age, HF). Initially patient did not want Eliquis however they are now agreeing to Eliquis. Will have case management do cost analysis.
-Patient did have several days of hematuria at onset of UTI. No hematuria over the last few days on IV heparin. Patient has appointment in [place] with urology [place] to discuss debulking procedure for prostate due to BPH. Discussed if he
should undergo cardioversion he would need to remain on uninterrupted anticoagulation for a minimum of 4 weeks post CVA. Family will reach out to urologist to discuss.
- Current plan is for rate control with consideration of JOVANI/CV as outpatient or CV after 1 month anticoagulation in outpt setting. Will need to make sure patient can tolerate OAC prior to cardioversion
-New to Toprol-XL 50 mg BID this admission-continue
-Unable to add AIDE/ARB/aldosterone antagonist due to hypotension, BP 94/61 to 110/74
discussed with pt, , daughter at bedside, spent additional 25 minutes with family and patient reviewing A-fib, treatment of A-fib questions, anticoagulation answered. Also discussed with hospitalist
Progress Note - Gerontology Aide
Subjective
Date of Service: September 23, 2025
Patient seen and examined. Patient's and daughter at bedside. Patient reports he is feeling better. Still has indwelling Phillips catheter.
Objective
Labs:
09/22/25 11:26
09/23/25 10:09
Labs
Hgb 11.5 g/dL (13.0-18.0) L 09/22/25 11:26
Hct 34.4 % (39.0-52.0) L 09/22/25 11:26
Plt Count 344 10^3/uL (130-400) D 09/22/25 11:26
APTT 80.0 Sec (23.4-35.0) H 09/23/25 10:09
Sodium 132 mmol/L (135-145) L 09/23/25 10:09
Potassium 4.2 mmol/L (3.5-5.1) 09/23/25 10:09
BUN 20 mg/dl (9-20) 09/23/25 10:09
Creatinine 1.0 mg/dL (0.7-1.3) 09/23/25 10:09
Glucose 129 mg/dl (70-99) H 09/23/25 10:09
Vital Signs and I&O:
Vital Signs
Temp Pulse Resp BP Pulse Ox
98.6 F 117 18 94/61 93
09/23/25 11:29 09/23/25 11:29 09/23/25 11:29 09/23/25 11:29 09/23/25 11:29
Vital Signs
Temp Pulse Resp BP Pulse Ox
98.6 F 117 18 94/61 93
09/23/25 11:29 09/23/25 11:29 09/23/25 11:29 09/23/25 11:29 09/23/25 11:29
Intake & Output
09/21/25 09/22/25 09/23/25 09/24/25
06:59 06:59 06:59 06:59
Intake Total 960 / 960 970 / 970 1080 / 1080
Output Total 3250 / 3250 3975 / 3975 2049
Balance -2290 / -2290 -3005 / -3005 -970 / -970
Physical Exam
Physical Exam
GEN: No distress, awake, Ox3
HEENT: supple, anicteric, mmm
LUNGS: CTA, no wheezes/rales
CV: Irregularly irregular, S1/S2, no murmur
ABD: soft, BS+, NT/ND
: Indwelling Phillips with yellow/clear urine
EXT: No edema, clubbing or cyanosis
NEURO: Gross non-focal
SKIN: No rash warm, dry, pink
[2025-09-23] MEDS: ELIQUIS 5 MG PO (19:55)
[2025-09-23] MEDS: TOPROL XL PO (20:00)
[2025-09-24 03:51] VITALS: BP 104/69
[2025-09-24] MEDS: SYNTHROID 25 MCG PO (05:29)
[2025-09-24 06:38] VITALS: BMI 31.0
[2025-09-24 06:50] LABS: Hematocrit 34.3 % (39.0-52.0); Hemoglobin 11.4 g/dL (13.0-18.0); Mean Corp Hgb Conc. 33.2 g/dL (33.0-37.0); Mean Corpuscular Volume 95.0 fL (80.0-94.0); Platelet Count 479 10^3/uL (130-400); Red Cell Dist. Width 13.1 % (11.5-14.5)
[2025-09-24 07:04] LABS: HDL Cholesterol 40 mg/dl; LDL Cholesterol, Calculated 103 mg/dl; Very Low Density Lipoprotein 31 mg/dl (0-30)
--- NOTE | 2025-09-24 07:26 | PTCARENOTE ---
Pt aaox3 able to make his needs known.Denies pain.Pt converted from Afibb to Sinus rhythm this morning.SALVAGE GRINDER public relations account supervisor made aware. EKG done on pt.Plan of care continued.
[2025-09-24] MEDS: SYMBICORT 160/4.5 MCG INHALER 2 PUFF INH (07:43)
[2025-09-24 07:45] VITALS: BP 91/60
[2025-09-24] MEDS: PACERONE 400 MG PO (08:34)
[2025-09-24] MEDS: MIRALAX 17 GRAMS PO (08:34)
[2025-09-24] MEDS: DELTASONE 40 MG PO (08:35)
[2025-09-24] MEDS: TESSALON PERLES 100 MG PO (08:35)
[2025-09-24] MEDS: LASIX 20 MG PO (08:35)
[2025-09-24] MEDS: CIPRO 500 MG PO (08:35)
[2025-09-24] MEDS: TOPROL XL PO (08:35)
[2025-09-24] MEDS: PROSCAR 5 MG PO (08:35)
[2025-09-24] MEDS: ANESTHETIC LOZENGE 1 LOZENGE PO (08:36)
[2025-09-24] MEDS: ELIQUIS 5 MG PO (08:36)
--- NOTE | 2025-09-24 09:40 | W.PN.HOSP.TC ---
Today's Communication/Plan
-
dc
Assessment / Plan
Assessment / Plan
Physical Exam
General: Well Developed, Well Nourished, No Apparent Distress, Comfortable and Conversant
HEENT: Normocephalic, PERRLA, Nose Appears Normal and Ears Appear Normal
Respiratory: Clear and Non Labored Respirations. Mild rhonchi both sides at bases.
Cardiac: S1/S2 and Regular Rhythm; No Murmur or Peripheral Edema
GI: Soft, Non Tender, Non Distended and Normal Bowel Sounds
Genito-urinary: Clear Urine, No costovertebral tender and Phillips if off
Musculoskeletal: No Clubbing, No Cyanosis and No Edema
Skin: Warm
Neuro: Awake and AO x 3
Psych: Calm and Intact Judgment/Insight
# Paroxysmal AF alternating with atrial tachycardia, new diagnosis of unclear duration. Converted to SR spontaneously on 09/24
ECHO 09/20/25: EF 43%, mildly dilated RV with normal systolic function, mild aortic regurgitation, mild to moderate M
[id number] 2 (age, HF). Started on IV heparin gtt, with no hematuria, then changed to Eliquis ( cost driven choice)
Newly diagnosed CMP, could be tachycardia induced Vs others. Plan to f/w cardiology for further work-up
on Toprol and amiodarone
Could not tolerate CCB due to hypotension
Unable to tolerate further meds for GDMT due to hypotension.
Appreciate cardiology help
#sepsis 2/2 urinary tract infection. Resolved.
patient treated with Macrobid and Bactrim outpatient and treatment failed
Urine and blood culture no growth
Suspect we will have low sensitivity culture due to prior use of antibiotics
s/p IV cefepime, changed to Cipro
Outpatient cultures reviewed, with noted growth of Morganella morganii, sensitive to fluoroquinolones.
Appreciate ID help
# TME
Resolved.
Non focal
# Asthma with mild acute exacerbation
d/w Pulmonary,
on Inhalation therapy, starting Prednisone. Discussed with pulmonary doctor, discharged on tapering prednisone and Symbicort.
Cough medicine with Robitussin & Tessalon
Appreciate pulmonary help
#acute urinary retention likely 2/2 UTI with prior history of retention. History of BPH. Patient follows with [place] [facility]. He is under close observation and has upcoming appointment. We did voiding trial 09/21 but failed.
We may try another voiding trial after achieving a good control of HR and more ambulatory but he is likely going to be dc with [facility], he will f/w his urologist at [facility].
Per ID: Oral ciprofloxacin to complete a 10-day course in total.
#acute kidney injury
Resolved
#BPH
- continue finasteride and tadalafil
# Hyponatremia, no confusion, lucid
# Nonischemic myocardial injury secondary to sepsis
No chest pain.
Nuclear stress test in 2023 was low probability for CAD
EKG, no ischemic change
#constipation
patient unsure of last BM
- daily Miralax
Given Senakot
#hypothyroidism
- continue levothyroxine
TSH is normal
#renal cell carcinoma
s/p nephrectomy 2015
Followed with [facility] (no chemo and no radiation)
Code status: full code
DVT prophylaxis: Eliquis
Total discharge time spent to see the patient, examine the patient, review data and lab results, discuss discharge/ treatment plan with patient, family, automotive service consultant, nursing staff around 67 minutes
Anticipated Discharge: Today
Subjective/Interval History
-
Date of Service: September 24, 2025
Doing well
No chest pain
No sob
Objective Data
-
Labs:
Laboratory Results
09/23/25 09/24/25
16:55 05:46
WBC 14.7 H
Hgb 11.4 L
Hct 34.3 L
Plt Count 479 H D
APTT Cancelled
Vital Signs:
Vital Signs
Temp Pulse Resp BP Pulse Ox
97.6 F 72 16 91/60 96
09/24/25 07:45 09/24/25 08:34 09/24/25 07:45 09/24/25 08:34 09/24/25 07:45
I&O
09/23/25 09/24/25 09/25/25
06:59 06:59 06:59
Intake Total 1080 / 1080 660 / 660
Output Total 2049 / 2049 2700 / 270
Balance -970 / -970 -2039 / -2039
[2025-09-24 11:53] VITALS: BP 94/53
--- NOTE | 2025-09-24 11:55 | CM ---
Patient is for discharge to home today with [facility].
Plan; Home with [facility].
--- NOTE | 2025-09-24 12:26 | W.PN.CARDCBS ---
Today's Communication / Plan
-
Stable for discharge home with outpatient cardiac follow-up
Impression / Plan
-
PCP: Lena Shay
Primary parent aide: Tova Trotter MD
Impression:
Fever
Urosepsis
EBENEZER, resolved
Elevated troponin
Chest pain
Paroxysmal AF vs Atach, new diagnosis of unclear duration
acute noncardiogenic pulmonary edema
Hyperlipidemia
Renal cell cancer of right kidney
Right nephrectomy
BPH
CM, EF 43% by echo 09/20/2025
Mild to moderate MR
Previous cardiovascular testing:
Lexiscan nuclear stress test 11/13/2023: Normal perfusion
ECHO 09/20/25: EF 43%, mildly dilated RV with normal systolic function, mild aortic regurgitation, mild to moderate MR
Plan:
Newly diagnosed A-fib/AT 09/19/2025, persistent with continued rapid rates.
-Converted to sinus rhythm converted to sinus rhythm this am
-Will change amiodarone to 400 mg 3 times daily to 200 mg twice daily for an additional week and then 200 mg daily.
-Twelve-lead EKG sinus rhythm and a normal EKG. QTc 465 ms
-Continue metoprolol XL50 mg twice daily
-Continue Eliquis anticoagulation
Abnormal cardiac troponins which peaked at 0.861.
-No chest pain or pressure.
- He has cardiac risk factors for coronary artery disease however abnormal troponins and mildly reduced ejection fraction may be related to tachycardia.
-He had a Lexiscan nuclear stress test 11/13/2023 which had normal myocardial perfusion and an EF of 64%.
- Consider outpatient Lexiscan PET/CT stress test given cardiac risk factors and need for upcoming surgical procedures.
Heart failure with mildly reduced ejection fraction, 2D echocardiogram 09/20/2025 with EF 43%
-Etiology unclear, ischemic versus nonischemic/tachycardia mediated
- From a heart failure perspective, initial proBNP was 2250 on September 19.
- Started on Lasix 20 mg once daily on 09/21/2025
- No significant weight loss.
- Goal-directed medical therapy limited by low blood pressure: Toprol XL, Lasix. Patient currently has a UTI but could consider SGLT2 inhibitor as an outpatient.
Sepsis with complicated UTI secondary to Morganella morganii
- ID consulted
- Continue antibiotics
Renal cell cancer of right kidney/Right nephrectomy-renal function normal. Monitor.
Stable for discharge home.
Message placed for [facility] to call patient next week to arrange cardiac follow-up
Progress Note - Consumer Product Advisor
Subjective
Date of Service: September 24, 2025
Seen and examined with family at bedside. He is anxious to go home after converting to sinus rhythm early this morning. He offers no complaints
Objective
Labs:
09/24/25 05:46
09/23/25 10:09
Labs
Hgb 11.4 g/dL (13.0-18.0) L 09/24/25 05:46
Hct 34.3 % (39.0-52.0) L 09/24/25 05:46
Plt Count 479 10^3/uL (130-400) H D 09/24/25 05:46
APTT Cancelled 09/23/25 16:55
Sodium 132 mmol/L (135-145) L 09/23/25 10:09
Potassium 4.2 mmol/L (3.5-5.1) 09/23/25 10:09
BUN 20 mg/dl (9-20) 09/23/25 10:09
Creatinine 1.0 mg/dL (0.7-1.3) 09/23/25 10:09
Glucose 129 mg/dl (70-99) H 09/23/25 10:09
Vital Signs and I&O:
Vital Signs
Temp Pulse Resp BP Pulse Ox
98.0 F 77 16 94/53 96
09/24/25 11:53 09/24/25 11:53 09/24/25 11:53 09/24/25 11:53 09/24/25 11:53
Vital Signs
Temp Pulse Resp BP Pulse Ox
98.0 F 77 16 94/53 96
09/24/25 11:53 09/24/25 11:53 09/24/25 11:53 09/24/25 11:53 09/24/25 11:53
Intake & Output
09/22/25 09/23/25 09/24/25 09/25/25
06:59 06:59 06:59 06:59
Intake Total 970 / 970 1080 / 1080 660 / 660
Output Total 3975 / 3975 2049 / 2049 2700 / 270
Balance -3005 / -3005 -970 / -970 -2040 / -0
Physical Exam
Physical Exam
GEN: No distress, awake, Ox3
HEENT: supple, anicteric, mmm
LUNGS: CTA, no wheezes/rales
CV:Regular. Positive S1-S2. No murmurs.
ABD: soft, BS+, NT/ND
: Indwelling Phillips with yellow/clear urine
EXT: No edema, clubbing or cyanosis
NEURO: Gross non-focal
--- NOTE | 2025-09-24 14:17 | W.DCSUMMARY ---
Discharge Summary
Discharge Data
Date of Admission: 09/18/25
Date of Discharge: 09/24/25
-
Pending Results: No
Hospital Course
75 years old male admitted with fever. Patient was taking oral antibiotic for urinary tract infection given by his a primary care doctor patient reported cough and aches with chills. Patient met the criteria of sepsis on admission with
leukocytosis and UTI with fevers. Patient received intravenous antibiotic and intravenous fluid. Subsequent urine and blood culture did not show any growth. He was followed by infectious diseases doctor. He was maintained on ciprofloxacin to
finish course of total 10 days after receiving culture result from outpatient setting. Patient was noted to have acute urinary retention. Phillips catheter was in place. Subsequent voiding trial was not successful. Patient reported that he had a
follow-up with his primary urologist to discuss option of prostate surgery. Patient had history of urinary retention and difficulty urination in the past. He did not have hematuria. Patient was noted to have tachycardia/episodes of atrial
arrhythmias. He was diagnosed with atrial fibrillation. He was evaluated by retort firer. Echocardiogram showed LVEF 43% with mild aortic regurgitation, mild to moderate mitral valve regurgitation. Patient had no history of heart disease. He
was noted to have mildly elevated troponin was diagnosed with nonischemic myocardial injury secondary to sepsis/tachycardia. He was started on rate control medication. He did not tolerate high doses because of hypotension. He was started on
amiodarone orally/loading dose. His heart rate improved and converted spontaneously to sinus rhythm. he was started on Eliquis therapy after checking with case management and cost of co-pay.
Patient was evaluated by pulmonary doctor and was diagnosed with acute asthma exacerbation. He was started on steroid therapy and inhalation therapy with good outcome. He did not have hypoxia. Chest radiography did not show acute disease.
Lipid panel showed triglycerides 155, total cholesterol 174, LDL 103. Patient declined statin therapy. Discharge directions were discussed with patient and his family. He was counseled regarding potential side effects of medications including
ciprofloxacin. He verbalized understanding.
He remained hemodynamic stable was discharged home in a stable condition with home care services.
Discharge Plan
-
Patient Disposition: Home with Home Care
Discharge Diagnosis/Procedures: You were treated for urinary tract infection. You were seen by infectious disease doctor. You received intravenous antibiotics. You are discharged on ciprofloxacin. Potential side effects of ciprofloxacin include
tendinitis. Avoid taking it if you develop tendon/joint pain.
- You were diagnosed with atrial fibrillation. You were seen by retort firer. You received rate control medications and anticoagulation.
New medications include
1-metoprolol, beta-braulio, potential side effect include hypertension, low heart rate.
2-amiodarone, potential side effects include low heart rate, thyroid/pulmonary/liver injury
-3-Eliquis, blood thinner. Potential side effect include the bleeding. Please report to the hospital if you fall and hit your head even without immediate symptoms.
You will need to follow-up with retort firer in the office for further management and follow-up.
- You were diagnosed with cardiomyopathy, likely tachycardia induced. You are given Lasix treatment.
-You were diagnosed with asthma exacerbation. You were seen by pulmonary doctor. You are given steroid and nebulizer treatment. Potential side effects of prednisone include gastritis/reflux. Take your tablets with food.
- Urinary retention. You have failed voiding trial. Please follow-up with your urologist as soon as possible by now to find him with presence of Phillips cath.
Diet: As tolerated
Instructions: Apixaban
Referrals:
Romelia Whitley MD [Active, Pulmonary Medicine] - in two to four weeks
Ayden Tellez MD [Active, Cardiology] - in one to two weeks
Louis Regan DO [Active, Infectious Diseases]
Referral Note: As needed
Lena Shay DO [Family Provider, Family Practice]
Prescriptions:
New
ciprofloxacin HCl 500 mg Tablet
500 mg PO BID Qty: 7 0RF
budesonide-formoterol [Symbicort] 160-4.5 mcg/actuation Hfa Aerosol Inhaler
2 puff inhalation R BID Qty: 10.2 0RF
Eliquis 5 mg Tablet
5 mg PO BID Qty: 60 0RF
metoprolol succinate 50 mg Tablet Extended Release 24 Hr
50 mg PO BID Qty: 60 0RF
benzonatate 100 mg Capsule
100 mg PO TIDPRN PRN (Reason: cough) Qty: 20 0RF
prednisone 10 mg tablet
40 mg PO DAILY Qty: 22 0RF
Rx Instructions:
40 mg X1 day, 30 mg for 3 days, 20 mg for 3 days then 10 mg for 3 days then stop
amiodarone 200 mg tablet
200 mg PO BID Qty: 35 0RF
Rx Instructions:
Take 1 tablet twice a day for 7 days then 1 tablet daily
Continued
multivitamin Tablet
1 tab PO DAILY
sildenafil [Viagra] 100 mg Tablet
100 mg PO PRN PRN (Reason: intercourse)
levothyroxine 25 mcg Tablet
25 mcg PO DAILY
finasteride 5 mg Tablet
5 mg PO DAILY
vitamin B complex Capsule
1 cap PO DAILY
tadalafil 10 mg Tablet
10 mg PO DAILY
biotin 1 mg Tablet
1 mg PO DAILY
Discharge Orders:
Discharge Patient (As Directed); Ordered 09/24/25
Ordered By: Rosemary Angel
Discharge Date and Time
Discharge Date/Time: 09/24/25 14:39
Print Language: JAPANESE
== END 2025-09-24 14:39 | disposition home health service (06) | DRG 871 ==
LOC: 4 EAST ACU 23:03
PROVIDERS: Internal Medicine Cardiovascular Disease; Nurse Practitioner; Nurse Practitioner Family; Physician Assistant; ADMITTING PHYSICIAN Internal Medicine; ATTENDING PHYSICIAN Internal Medicine; CONSULT PHYSICIAN Internal Medicine Cardiovascular Disease; EMERGENCY PHYSICIAN Emergency Medicine; FAMILY PHYSICIAN Family Medicine; OTHER PHYSICIAN Internal Medicine; OTHER PHYSICIAN Internal Medicine Infectious Disease
DX: A41.9 Sepsis, unspecified organism (principal); G92.8 Other toxic encephalopathy; I50.21 Acute systolic (congestive) heart failure; J81.0 Acute pulmonary edema; N17.9 Acute kidney failure, unspecified; I5A Non-ischemic myocardial injury (non-traumatic); I47.10 Supraventricular tachycardia, unspecified; E87.1 Hypo-osmolality and hyponatremia; J45.21 Mild intermittent asthma with (acute) exacerbation; J90 Pleural effusion, not elsewhere classified; I47.19 Other supraventricular tachycardia; R65.20 Severe sepsis without septic shock; E03.9 Hypothyroidism, unspecified; N30.91 Cystitis, unspecified with hematuria; N40.1 Benign prostatic hyperplasia with lower urinary tract symptoms; I48.0 Paroxysmal atrial fibrillation; E78.5 Hyperlipidemia, unspecified; N18.9 Chronic kidney disease, unspecified; K59.00 Constipation, unspecified; K21.9 Gastro-esophageal reflux disease without esophagitis; B96.89 Other specified bacterial agents as the cause of diseases classified elsewhere; J30.89 Other allergic rhinitis; I95.9 Hypotension, unspecified; I34.0 Nonrheumatic mitral (valve) insufficiency; Z85.528 Personal history of other malignant neoplasm of kidney; Z90.5 Acquired absence of kidney; Z80.8 Family history of malignant neoplasm of other organs or systems; Z83.3 Family history of diabetes mellitus; Z82.0 Family history of epilepsy and other diseases of the nervous system; Z82.49 Family history of ischemic heart disease and other diseases of the circulatory system; Z80.42 Family history of malignant neoplasm of prostate; Z80.1 Family history of malignant neoplasm of trachea, bronchus and lung; Z79.890 Hormone replacement therapy; Z11.52 Encounter for screening for COVID-19
CPT/HCPCS: 71045; 71046; 74176; 80048; 80053; 80061; 81003; 81015; 83605; 83735; 83880; 84443; 84484; 85025; 85027; 85730; 87040; 87086; 87502; 87811; 93005; 93306; 94640; 96361; 96374; 97116; 97163; 97166; 97530; 97535; 99285